=== PATIENT | male | born 1975 | race Caucasian/White ===

== ENCOUNTER 2019-07-03 12:18 | Inpatient (IN) | payer OTHER ==
[~2019-07-03] VITALS: Ht 182.9 cm; Wt 111.6 kg
[2019-07-03 12:54] VITALS: BP_SYST 85
--- NOTE | 2019-07-03 14:05 | NUR ---
Patient to ER bed 04 to gown for evaluation. Side rails up.
[2019-07-03 14:09] LABS: BASOPHILS # (AUTO) 0.1 K/uL (0.0-0.2); BASOPHILS % (AUTO) 0.6 % (0.0-2.0); EOSINOPHILS # (AUTO) 0.1 K/uL (0.0-0.4); EOSINOPHILS % (AUTO) 0.6 % (0.0-4.0); HEMATOCRIT 42.2 % (36-54); HEMOGLOBIN 14.3 g/dL (14.0-18.0); LYMPHOCYTES % (AUTO) 9.5 % (20.5-51.5); MEAN CORPUSCULAR HEMOGLOBIN 30 pg (27-31); MEAN CORPUSCULAR HGB CONC 34 % (32-36); MEAN CORPUSCULAR VOLUME 90 fL (79.0-98.0); MONOCYTES # (AUTO) 0.8 K/uL (0.0-1.0); MONOCYTES % (AUTO) 7.7 % (1.7-9.3); NEUTROPHILS # (AUTO) 8.3 K/uL (1.8-7.7); NEUTROPHILS % (AUTO) 81.6 % (40.0-70.0); PLATELET COUNT (AUTO) 278 K/uL (130-430); RED CELL DISTRIBUTION WIDTH 14.4 % (9.0-15.0); WHITE BLOOD COUNT (AUTO) 10.1 K/uL (4.8-10.8)
[2019-07-03 14:21] LABS: CALCIUM 8.6 mg/dL (8.4-11.0); CREATININE 1.78 mg/dL (0.55-1.30); POTASSIUM 4.1 mmol/L (3.5-5.1)
--- NOTE | 2019-07-03 14:23 | NUR ---
ER Dr. Del Valle at bedside examining patient.
[2019-07-03 14:27] LABS: ALBUMIN 2.8 g/dL (3.4-4.8); TOTAL BILIRUBIN 2.8 mg/dL (0.0-1.0)
--- NOTE | 2019-07-03 14:35 | NUR ---
Patient presented to ER with C/O shoulder RUQ pain. Patient A&Ox4, afebrile, arrived via wheelchair, patient Quadrapalegic with bilat arm movement. Patient has Nausea, denies V/D, pain /. Patient referred by Dr. Henderson office for Cholecystitis
[2019-07-03] MEDS ORDERED: AZITHROMYCIN 500 MG in NS 250 ML IV ONE (15:30)
--- NOTE | 2019-07-03 16:15 | NUR ---
# 24 gauge angiocath placed to right hand. Use of asceptic technique. Opsite placed over site. Blood return noted. Blood for lab drawn from site. Flushed with 10 cc of normal saline. No evidence of infiltration noted. Patient tolerated well.
--- NOTE | 2019-07-03 16:30 | NUR ---
Per Tanisha DEGROOTautomatic punch press operator waiting patient bed assignment, HOLD in ER
[2019-07-03] MEDS ORDERED: POTASSIUM CHLORIDE 20 MEQ in D5NS 1,000 ML IV SCH (17:00)
[2019-07-03] MEDS: KCL 20 mEq in D5NS 1000 mL 1,000 ML IV SCH ×3 (17:33→23:40)
[2019-07-03] MEDS: PIPERACILLIN/TAZO 3.375/DEX-IS 50 ML IV SCH ×2 (17:34→20:19)
[2019-07-03] MEDS ORDERED: AZITHROMYCIN 500 MG/VIAL (ZITHROMAX) IV ONE (17:58)
[2019-07-03] MEDS ORDERED: KETOROLAC TROMETHAMINE 30 MG VIAL IM SCH (18:00)
--- NOTE | 2019-07-03 18:05 | NUR ---
# 16 FR Bang catheter with use of sterile technique. Immediate return of 30cc yellow urine noted. Bedside drainage bag placed below level of bladder. Urine sample collected and sent to lab. Pt tolerated procedure well . Patient arrived with condom catheter in place, changed due to standard of practice prior to admission. Patient unable to toilet self, parapalegic.
[2019-07-03 18:14] LABS: BILIRUBIN,URINE 2+ (NEGATIVE); BLOOD, URINE 2+ (NEGATIVE); CLARITY/URINE CLOUDY (CLEAR); COLOR,URINE YELLOW (YELLOW); GLUCOSE,URINE NEGATIVE (NEGATIVE); KETONES,URINE TRACE (NEGATIVE); LEUKOCYTE ESTERASE ,URINE 3+ (NEGATIVE); NITRITE, URINE POSITIVE (NEGATIVE); PROTEIN URINE 1+ (NEGATIVE); UROBILINOGEN,URINE 0.2 (0.2-1.0)
[2019-07-03] MEDS: metroNIDAZOLE 500 mg/NS 100 ML IV SCH (18:19)
[2019-07-03 18:24] LABS: BACTERIA,URINE MANY /HPF (None Seen); MUCUS,URINE None Seen /LPF (None Seen); URINE AMORPHOUS PHOSPHATES 2+ /HPF (None Seen); WBC,URINE >100 /HPF (0-3)
[2019-07-03] MEDS ORDERED: metroNIDAZOLE 500 mg/NS 100 ML IV ONE (18:32)
--- NOTE | 2019-07-03 19:15 | NUR ---
No Med rec, patient unable to provide medication list. Brother will bring in.
--- NOTE | 2019-07-03 19:19 | NUR ---
Report to Anand DEGROOT
--- NOTE | 2019-07-03 20:30 | NUR ---
Patient will be admitted to care of DR GEE. Admitted to unit. Will go to room . Belongings list completed. Summary report printed. Report will be given at bedside.
--- NOTE | 2019-07-03 20:45 | NUR ---
ADMISSION NOTE Received patient from ER via thao, received report from MIKAYLA evans. Patient admitted with diagnosis of acute cholecystitis. Patient oriented to hospital routine, call light, toileting and safety-patient verbalized understanding.
[2019-07-03 20:46] VITALS: BP_SYST 100
--- NOTE | 2019-07-03 21:37 | NUR ---
CONSULTATION PAGED/CALLED Reason for Consultation: CHOLECYSTITIS Person Who was Notified:DIANE Consulting Physician: Vickie KHAN Life Science Technician Specialty: Ordering Physician: MARLEN
--- NOTE | 2019-07-03 21:41 | NUR ---
HIDA Patient taken to radiology for Hida scan, will monitor when back in room.
--- NOTE | 2019-07-03 21:46 | NUR ---
Spoke to Dr. Vickie KHAN, new consult, updated him on patients status, no new orders at this time, states he will see patient in the am.
--- NOTE | 2019-07-03 23:04 | NUR ---
RN ROUNDS Patient still in radiology for HIDA scan.
[2019-07-04] MEDS: PIPERACILLIN/TAZO 3.375/DEX-IS 50 ML IV SCH ×5 (00:51→23:22)
--- NOTE | 2019-07-04 01:10 | NUR ---
RN ROUNDS Patient back from Hida scan, placed back in bed, nauseated, paged Dr. Beverly for medication orders, awaiting for call back.
[2019-07-04 01:42] VITALS: BP_SYST 131
--- NOTE | 2019-07-04 03:00 | NUR ---
RN ROUNDS/IV Patient awake, IV line to right hand infiltrated, new IV line placed on left ac with 20 gauge catheter, good blood return noted, secured with opsite and tape. Resumed IVF and antibiotics, patient repositioned for comfort, sister at bedside.
[2019-07-04] MEDS: metroNIDAZOLE 500 mg/NS 100 ML IV SCH ×3 (03:53→20:42)
[2019-07-04] MEDS ORDERED: FLU VACC QS2019-20 36MOS UP/PF 60 MCG/0.5 ML SYRINGE I.M. PRN (04:15)
--- NOTE | 2019-07-04 04:21 | NUR ---
RN ROUNDS Patient sleeping, breathing is even and unlabored, due antibiotics administered, new IV line intact and patent, safety measures in place, sister remains at bedside, will monitor.
[2019-07-04] MEDS: KETOROLAC TROMETHAMINE 30 MG VIAL IVP SCH ×4 (05:19→23:21)
[2019-07-04] MEDS: KCL 20 mEq in D5NS 1000 mL 1,000 ML IV SCH ×3 (05:36→22:58)
--- NOTE | 2019-07-04 06:12 | NUR ---
RN ROUNDS Patient continues to sleep, breathing is even and unlabored, due medications administered, feliz catheter secured and to gravity draining lencho urine, safety measures maintained through out the shift, sister remains at bedside, will monitor until report given to am nurse.
[2019-07-04 06:41] LABS: BASOPHILS % (AUTO) 0.2 % (0.0-2.0); EOSINOPHILS # (AUTO) 0.1 K/uL (0.0-0.4); EOSINOPHILS % (AUTO) 0.8 % (0.0-4.0); HEMATOCRIT 39.8 % (36-54); HEMOGLOBIN 13.5 g/dL (14.0-18.0); LYMPHOCYTES # (AUTO) 0.7 K/uL (1.0-5.5); LYMPHOCYTES % (AUTO) 8.4 % (20.5-51.5); MEAN CORPUSCULAR HEMOGLOBIN 30 pg (27-31); MEAN CORPUSCULAR HGB CONC 34 % (32-36); MEAN CORPUSCULAR VOLUME 89 fL (79.0-98.0); MONOCYTES # (AUTO) 0.7 K/uL (0.0-1.0); MONOCYTES % (AUTO) 8.5 % (1.7-9.3); NEUTROPHILS # (AUTO) 6.8 K/uL (1.8-7.7); NEUTROPHILS % (AUTO) 82.1 % (40.0-70.0); PLATELET COUNT (AUTO) 235 K/uL (130-430); RED BLOOD CELL COUNT(AUTO) 4.48 MIL/uL (4.2-6.2); RED CELL DISTRIBUTION WIDTH 14.1 % (9.0-15.0); WHITE BLOOD COUNT (AUTO) 8.3 K/uL (4.8-10.8)
[2019-07-04 07:11] LABS: ALBUMIN 2.1 g/dL (3.4-4.8); CALCIUM 7.9 mg/dL (8.4-11.0); CREATININE 1.73 mg/dL (0.55-1.30); TOTAL BILIRUBIN 3.1 mg/dL (0.0-1.0)
--- NOTE | 2019-07-04 07:30 | NUR ---
Opening note Patient resting in bed at this time, A/Ox4, no SOB. No complaints of pain. IV patent, intact, and infusing fluids as ordered. No adverse side effects noted. On safety and aspiration precautions, HOB kept elevated, 3 side rails up, call light within reach. patient in stable condition. Will continue to monitor.
[2019-07-04 08:00] VITALS: BP_SYST 95
--- NOTE | 2019-07-04 08:24 | NUR ---
Nutrition Update Gilson Scale 17 noted. Pt admitted for acute cholecystitis. Diet: clear liquid, no red BMI: 33.6 kg/m2 RD to follow per nutrition care standards.
--- NOTE | 2019-07-04 09:00 | NUR ---
Rounds patient resting in bed at this time, no complaints of pain. Iv patent, intact, and infusing fluids as ordered. no adverse side effects. Bang catheter in place, draining lencho colored urine to gravity. no other needs at this time.
[2019-07-04 11:08] VITALS: BP_SYST 108
--- NOTE | 2019-07-04 11:30 | NUR ---
rounds Ice water provided. Skin care provided. Linens changed. no other needs at this time.
--- NOTE | 2019-07-04 13:00 | NUR ---
Lunch patient sitting up in bed at this time, eating lunch, tolerating well. no nausea, no vomiting noted. patient in stable condition.
--- NOTE | 2019-07-04 14:58 | NUR ---
Rounds Patient resting in bed at this time. Denies pain. offered patient bed byrnes. patient denied need. no other needs at this time.
[2019-07-04] MEDS ORDERED: ONDANSETRON HCL 4 MG/2 ML VIAL IVP PRN (15:15)
--- NOTE | 2019-07-04 15:30 | NUR ---
Flu shot patient requested for flu shot, given as ordered. no adverse side effects, afebrile.
[2019-07-04 16:09] VITALS: BP_SYST 99
--- NOTE | 2019-07-04 18:00 | NUR ---
Dr. Han patient seen by Dr. Han, patient to have surgery on . Patient awaiting midline placement. Consent given for midline by patient.
--- NOTE | 2019-07-04 18:27 | NUR ---
Closing note Patient resting in bed at this time, A/Ox4, no SOB. No complaints of pain. IV patent, intact, and infusing fluids as ordered. No adverse side effects noted. Bang catheter in place, draining lencho colored urine to gravity. On safety and aspiration precautions, HOB kept elevated, 3 side rails up, call light within reach. patient in stable condition. All needs met.
--- NOTE | 2019-07-04 19:30 | NUR ---
Opening notes Pt AAOx4, no s/s distress noted. Family at bedside. IVF infusing at ordered rate L. AC 20G no s/s infiltration. Bang catheter draining to gravity with lencho urine. Call light within reach. Bed low, locked, siderails up x3. To monitor.
--- NOTE | 2019-07-04 19:55 | NUR ---
PICC MIKAYLA LEDESMA AT BEDSIDE FOR MIDLINE PLACEMENT. TIME OUT DONE AT BEDSIDE. Addendum: 07/04/19 at 2038 by Liz Mejía RN TERRELL PICC LINE DOUBLE LUMEN. GOOD BLOOD RETURN AND FLUSHES WELL WITH 10CC NS.
--- NOTE | 2019-07-04 20:29 | NUR ---
PORTABLE XRAY AT BEDSIDE TO CONFIRM PLACEMENT OF MIDLINE. Addendum: 07/04/19 at 2040 by Liz Mejía RN KACY CISNEROS.
[2019-07-04] MEDS: ENOXAPARIN SODIUM 30 MG/0.3 ML SYRINGE SUBCUT SCH (20:45)
[2019-07-04 20:48] LABS: INR 1.1 (0.80-1.20); PROTHROMBIN TIME 10.7 SECS (9.5-12.5)
[2019-07-04 20:53] VITALS: BP_SYST 107
--- NOTE | 2019-07-04 21:45 | NUR ---
CONSULT: CONSULT CALLED FOR DR. ARLETTE PEARSON I SPOKE WITH SAYRA EXCHANGE REASON FOR CONSULT: RIGHT ADRENAL MASS REQUESTING CONSULT: DR. GEE GREENSKEEPER SUPERVISOR PHONE NUMBER: [phone]
--- NOTE | 2019-07-04 21:47 | NUR ---
CONSULT: CONSULT CALLED FOR DR. ROBERSON I SPOKE WITH SAYRA EXCHANGE REASON FOR CONSULT: RT SIDE PNEUMONIA AND CHOLECYSTITIS REQUESTING CONSULT: DR. GEE PENSION CONSULTANT PHONE NUMBER: [phone]
--- NOTE | 2019-07-04 22:35 | NUR ---
Paged Pt c/o bloating and no BM since wednesday. Pt states he takes suppository at home. Paged and spoke with Dr. Beverly and orders received. Will carry out.
[2019-07-04] MEDS: MAG-AL HYDROX/SIMETH 30 ML UDC PO PRN (22:57)
[2019-07-04] MEDS ORDERED: BISACODYL 10 MG/SUPPOSITORY RC SCH (23:00)
--- NOTE | 2019-07-04 23:22 | NUR ---
Rounds Pt awake, states he feels better after Maalox given. Pt refused suppository at this time, pt states he wants to rest. Call light within reach. To monitor.
[2019-07-05 00:30] VITALS: BP_SYST 95
--- NOTE | 2019-07-05 02:10 | NUR ---
Rounds Pt asleep, respirations even and unlabored. IVF infusing at ordered rate TERRELL PICC line. Call light within reach. Pt's sister at bedside. Safety measures in place. To monitor.
[2019-07-05] MEDS: KCL 20 mEq in D5NS 1000 mL 1,000 ML IV SCH ×3 (02:20→16:23)
[2019-07-05] MEDS: metroNIDAZOLE 500 mg/NS 100 ML IV SCH ×3 (04:11→21:05)
[2019-07-05] MEDS: PIPERACILLIN/TAZO 3.375/DEX-IS 50 ML IV SCH ×2 (05:32→12:05)
[2019-07-05] MEDS: KETOROLAC TROMETHAMINE 30 MG VIAL IVP SCH ×3 (05:36→18:27)
--- NOTE | 2019-07-05 06:00 | NUR ---
Closing notes Pt alert awake, no s/s distress noted. IV antibiotic and pain med given as scheduled. IVF infusing at ordered rate TERRELL PICC line 2 lumens. Offered pt suppository this Am, but pt wants it later this AM. Pt signed consent for surgery, per pt. Dr. Han already spoke with him, placed in chart. Bang catheter draining to gravity with good output. Call light within reach. Bed low, locked, siderails up x 3. Pts sister at bedside. To endorse to AM nurse.
--- NOTE | 2019-07-05 06:46 | NUR ---
Insulin pump Pt alert, awake, blood sugar checked 276. Pt self-administered 4.5 units Humalog via his insulin pump. Addendum: 07/05/19 at 0721 by Liz Mejía RN Disregard above notes. Error in entry.
[2019-07-05 07:04] LABS: BASOPHILS % (AUTO) 0.4 % (0.0-2.0); EOSINOPHILS # (AUTO) 0.2 K/uL (0.0-0.4); EOSINOPHILS % (AUTO) 4.3 % (0.0-4.0); HEMATOCRIT 37.2 % (36-54); HEMOGLOBIN 12.5 g/dL (14.0-18.0); LYMPHOCYTES # (AUTO) 0.9 K/uL (1.0-5.5); LYMPHOCYTES % (AUTO) 15.6 % (20.5-51.5); MEAN CORPUSCULAR HEMOGLOBIN 30 pg (27-31); MEAN CORPUSCULAR HGB CONC 34 % (32-36); MEAN CORPUSCULAR VOLUME 90 fL (79.0-98.0); MONOCYTES # (AUTO) 0.6 K/uL (0.0-1.0); MONOCYTES % (AUTO) 11.4 % (1.7-9.3); NEUTROPHILS # (AUTO) 3.9 K/uL (1.8-7.7); NEUTROPHILS % (AUTO) 68.3 % (40.0-70.0); PLATELET COUNT (AUTO) 216 K/uL (130-430); RED BLOOD CELL COUNT(AUTO) 4.16 MIL/uL (4.2-6.2); RED CELL DISTRIBUTION WIDTH 14.2 % (9.0-15.0); WHITE BLOOD COUNT (AUTO) 5.7 K/uL (4.8-10.8)
--- NOTE | 2019-07-05 07:30 | NUR ---
OPENING NOTES: RECEIVED PATIENT FROM TELEPHONIC NURSE NURSE. PATIENT IS AWAKE AND ALERT IN BED. PATIENT DENIES ANY PAIN AT THE MOMENT. NO SIGNS OF DISTRESS OR SHORTNESS OF BREATH NOTED. PICC LINE INTACT AND INFUSING FLUIDS ORDERED WITH CLEAN, DRY DRESSING. [place] CATHETER INTACT AND DRAINING BY GRAVITY. PATIENT IS TOLERATING OXYGEN AT ROOM AIR. PATIENT IN STABLE CONDITION. SAFETY, FALL AND ASPIRATION PRECAUTIONS ARE IN PLACE. BED LOCKED IN LOWEST POSITION WITH CALL LIGHT IN REACH. WILL CONTINUE TO MONITOR PATIENT FOR ANY CHANGES.
[2019-07-05 07:33] LABS: CALCIUM 7.9 mg/dL (8.4-11.0); CREATININE 1.35 mg/dL (0.55-1.30); POTASSIUM 4.4 mmol/L (3.5-5.1)
[2019-07-05 08:22] VITALS: BP_SYST 125
--- NOTE | 2019-07-05 09:04 | NUR ---
MD ROUNDS: DR. KHAN MAKING ROUNDS. AWARE OF PATIENT'S CONDITION. NO NEW ORDERS GIVEN.
--- NOTE | 2019-07-05 10:20 | NUR ---
RN ROUNDS: PATIENT IS AWAKE AND ALERT x4 LAYING DOWN IN BED. FAMILY AT BEDSIDE. PATIENT DENIES ANY PAIN AT THE MOMENT. NO SIGNS OF DISTRESS OR SHORTNESS OF BREATH NOTED. PATIENT IN STABLE CONDITION. WILL CONTINUE TO MONITOR PATIENT FOR ANY CHANGES.
[2019-07-05 12:00] VITALS: BP_SYST 122
--- NOTE | 2019-07-05 12:20 | NUR ---
RN ROUNDS: PATIENT IS AWAKE AND ALERT x4. NO SIGNS OF DISTRESS OR SHORTNESS OF BREATH NOTED. PATIENT DENIES ANY PAIN AT THE MOMENT. PATIENT IN STABLE CONDITION. WILL CONTINUE TO MONITOR PATIENT FOR ANY CHANGES.
--- NOTE | 2019-07-05 14:00 | NUR ---
RN ROUNDS: PATIENT IS AWAKE AND ALERT x4 LAYING DOWN IN BED. PATIENT IS ABOUT TO GET TAKEN TO RADIOLOGY FOR A CT SCAN. NO SIGNS OF DISTRESS OR SHORTNESS OF BREATH NOTED. PATIENT IN STABLE CONDITION. WILL CONTINUE TO MONITOR PATIENT ONCE HE RETURNS FROM RADIOLOGY.
--- NOTE | 2019-07-05 14:24 | NUR ---
RN ROUNDS: PATIENT WAS BROUGHT BACK TO THE FLOOR FROM RADIOLOGY. PATIENT AWAKE AND ALERT x4 LAYING DOWN IN BED. RECONNECTED IV FLUIDS AND RUNNING ORDERED. PATIENT IN STABLE CONDITION. WILL CONTINUE TO MONITOR PATIENT FOR ANY CHANGES.
[2019-07-05] MEDS: CEFEPIME 1 GM in D5W 50 ML IV SCH (14:35)
--- NOTE | 2019-07-05 16:12 | NUR ---
RN ROUNDS: PATIENT IS AWAKE AND ALERT x4 LAYING DOWN IN BED. NO SIGNS OF DISTRESS OR SHORTNESS OF BREATH NOTED. PATIENT IN STABLE CONDITION. WILL CONTINUE TO MONITOR PATIENT FOR ANY CHANGES.
[2019-07-05 17:01] VITALS: BP_SYST 149
--- NOTE | 2019-07-05 18:45 | NUR ---
CLOSING NOTES: PATIENT IS AWAKE AND ALERT x4 IN BED. PATIENT DENIES ANY PAIN AT THE MOMENT. NO SIGNS OF DISTRESS OR SHORTNESS OF BREATH NOTED. PICC LINE INTACT AND INFUSING FLUIDS ORDERED WITH CLEAN, DRY DRESSING. [place] CATHETER INTACT AND DRAINING BY GRAVITY. PATIENT IS TOLERATING OXYGEN AT ROOM AIR. PATIENT IN STABLE CONDITION. SAFETY, FALL AND ASPIRATION PRECAUTIONS ARE IN PLACE. BED LOCKED IN LOWEST POSITION WITH CALL LIGHT IN REACH. WILL ENDORSE PATIENT CARE TO ONCOMING RADIOGRAPHY TECHNICIAN NURSE.
--- NOTE | 2019-07-05 19:25 | NUR ---
OPENING NOTES RECEIVED PATIENT IN BED AAO X4. FAMILY AT BEDSIDE. IVF INFUSING ORDERED. TERRELL PICC LINE DRY AND INTACT. BED IN LOWEST LOCKED POSITION. CALL LIGHT WITH IN REACH.
[2019-07-05] MEDS: ENOXAPARIN SODIUM 30 MG/0.3 ML SYRINGE SUBCUT SCH (21:00)
--- NOTE | 2019-07-05 21:05 | NUR ---
ATB PATIENT DUE ANTIBIOTIC INFUSED. VITAL SIGNS STABLE.
[2019-07-05 21:10] VITALS: BP_SYST 139
--- NOTE | 2019-07-05 21:25 | NUR ---
TERE SPOKE WITH DR. GEE VERIFIED IF OK TO GIVE LOVENOX DOSE TONIGHT. PER MD DO NOT GIVE DOSE TONIGHT PATIENT FOR SURGERY TOMORROW.
[2019-07-06] VITALS: BP_SYST 122
[2019-07-06] MEDS: KETOROLAC TROMETHAMINE 30 MG VIAL IVP SCH ×5 (00:04→23:33)
[2019-07-06] MEDS: KCL 20 mEq in D5NS 1000 mL 1,000 ML IV SCH ×3 (00:05→23:33)
--- NOTE | 2019-07-06 00:05 | NUR ---
MED PASS PATIENT DUE MEDICATION GIVEN. VITAL SIGNS STABLE.
[2019-07-06] MEDS: metroNIDAZOLE 500 mg/NS 100 ML IV SCH ×3 (04:20→21:02)
--- NOTE | 2019-07-06 04:20 | NUR ---
ATB PATIENT DUE ANTIBIOTIC INFUSED. PICC LINE INTACT. NO C/O PAIN.
--- NOTE | 2019-07-06 06:54 | NUR ---
CLOSING NOTES PATIENT RESTING IN BED. FAMILY MEMBER AT BEDSIDE. IVF INFUSING ORDERED. NPO STATUS PATIENT AWARE. PATIENT NEEDS ATTENDED. CALL LIGHT WITH IN REACH.
--- NOTE | 2019-07-06 07:25 | NUR ---
AM ROUNDS: PATIENT SLEEPING DURING ROUNDS. WITH FAMILY AT RECLINER CHAIR SLEEPING WELL.RIGHT UPPER ARM PICC LINE X 2 PORTS,IVF ON GOING. CALL LIGHT WITH IN REACH. BED LOCKED AT LOWEST POSITION. NOT IN ANY DISTRESS.NOTHING BY MOUTH SINCE MIDNIGHT.FOR SURGERY TODAY.
[2019-07-06 07:55] VITALS: BP_SYST 96
--- NOTE | 2019-07-06 10:10 | NUR ---
RN ROUNDS: PATIENT ON SIDE LYING,RESTING. NO COMPLAINED MADE.
[2019-07-06] MEDS: CEFEPIME 1 GM in D5W 50 ML IV SCH (11:18)
[2019-07-06] MEDS: cefTRIAXone 1 GM in D5W 50 ML IV SCH (11:59)
--- NOTE | 2019-07-06 12:00 | NUR ---
IV ROCEPHIN: DC MAXIPIME AND STARTED ON ROCEPHIN ORDERED.NO COMPLICATIONS NOTED.
[2019-07-06 12:25] VITALS: BP_SYST 138
--- NOTE | 2019-07-06 13:00 | NUR ---
TO OR: OR STAFF CAME AND REPORT GIVEN,ANESTHESIOLOGIST SPOKE TO PATIENT AT THE BEDSIDE,UNDERSTANDS THE INSTRUCTIONS.PATIENT SIGNED THE INFORM CONSENT.PRE OP CHECK LIST DONE.TO OR PER PADMINI LALA IN [place].STABLE.
[2019-07-06] MEDS ORDERED: MORPHINE 4 MG/ML INJ. SYRINGE IVP PRN (13:30)
[2019-07-06] MEDS ORDERED: ONDANSETRON HCL 4 MG/2 ML VIAL IVP PRN ×2 (13:30→15:00)
[2019-07-06] MEDS ORDERED: IOHEXOL 50 ML IV ONE ×2 (13:47→14:42)
[2019-07-06] MEDS ORDERED: LR 1,000 ML IV SCH (14:49)
[2019-07-06] MEDS ORDERED: HYDROmorphone 2 MG/ML VIAL IVP PRN (15:00)
[2019-07-06] MEDS ORDERED: HYDROmorphone 1 MG INJ. 1 MG/ML AMPUL IVP PRN ×2 (15:00)
--- NOTE | 2019-07-06 15:32 | NUR ---
RN ROUNDS: PATIENT STILL IN OR.
[2019-07-06] MEDS ORDERED: SEVOFLURANE 15 MIN GAS INH ONE (16:10)
[2019-07-06] MEDS ORDERED: GLYCOPYRROLATE 0.2 MG/ML VIAL ONE (16:10)
[2019-07-06] MEDS ORDERED: BUPIVACAINE /EPINEPHRINE/PF 0.25% 30 ML VIAL INJ ONE (16:10)
[2019-07-06] MEDS ORDERED: NS 1000 ML IV.SOLN IV ONE (16:10)
[2019-07-06] MEDS ORDERED: LR 1,000 ML IV.SOLN IV ONE (16:10)
[2019-07-06] MEDS ORDERED: PROPOFOL 200MG/ 20ML VIAL (DIPRIVAN) IV ONE (16:10)
[2019-07-06] MEDS ORDERED: NS IRRIG SOLN 1000 ML IR ONE (16:10)
[2019-07-06] MEDS ORDERED: ONDANSETRON HCL 4 MG/2 ML VIAL ONE (16:10)
[2019-07-06] MEDS ORDERED: NEOSTIGMINE METHYLSULFATE 1 MG/ML, 10 ML VIAL ONE (16:10)
[2019-07-06] MEDS ORDERED: MORPHINE SULFATE 10MG/10ML PF AMP ONE (16:10)
[2019-07-06] MEDS ORDERED: MIDAZOLAM HCL 5 MG/ML VIAL (VERSED) IV ONE (16:10)
[2019-07-06] MEDS ORDERED: ROCURONIUM BROMIDE 10 MG/ML (ZEMURON) ONE (16:10)
[2019-07-06] MEDS ORDERED: fentaNYL CITRATE 250 MCG/5 ML AMP ONE (16:10)
[2019-07-06] MEDS ORDERED: PHENYLEPHRINE HCL 10 MG/ML VIAL (NEOSYNEPHRINE) ONE (16:10)
[2019-07-06 17:20] VITALS: BP_SYST 102
--- NOTE | 2019-07-06 17:20 | NUR ---
POST OP NOTES: PATIENT BACK FROM OR. S/P OPEN CHOLECYSTECTOMY.RIGHT QUADRANT DRESSING CLEAN AND DRY.RIGHT [place] DRAIN,SEROUS SANGUINOUS DISCHARGES,SCANTY. POST OP VITAL SIGNS TAKEN,AFEBRILE. CONTINUE TO MONITOR.
--- NOTE | 2019-07-06 18:37 | NUR ---
CLOSING NOTES: PATIENT STABLE. CALL LIGHT WITH IN REACH. BED LOCKED AT LOWEST POSITION. NO ACTIVE BLEEDING ON POST SURGICAL SITE.[place] DRAIN INTACT. [place] IN SITU. CONDITION GUARDED.
--- NOTE | 2019-07-06 19:35 | NUR ---
ROUNDS PATIENT IN BED, AWAKE, WATCHING TV, NOT IN DISTRESS, VITALS STABLE. DENIES ANY PAIN AND DISCOMFORT AT THIS TIME. ASSESSMENT DONE AN DOCUMENTED. SEE FLOWSHEET. NEEDS ATTENDED TO. SAFETY AND FALL PRECAUTION MEASURES IN PLACED. BED ALARM ON. CALL LIGHT PLACED WITHIN REACH.
[2019-07-06] MEDS: ENOXAPARIN SODIUM 30 MG/0.3 ML SYRINGE SUBCUT SCH (21:04)
--- NOTE | 2019-07-06 21:13 | NUR ---
MEDICATIONS DUE MEDICATIONS GIVEN SCHEDULED, TOLERATED WELL. WILL CONTINUE TO MONITOR.
--- NOTE | 2019-07-07 00:12 | NUR ---
PATIENT RESTING: Patient resting quietly. No acute distress noted. Vital signs within normal range.
--- NOTE | 2019-07-07 00:13 | NUR ---
PATIENT RESTING: Patient resting quietly. No acute distress noted. Vital signs within normal range.
[2019-07-07 00:50] VITALS: BP_SYST 111
--- NOTE | 2019-07-07 02:15 | NUR ---
ROUNDS PATIENT ASLEEP, VITALS STABLE, NO PAIN AND DISCOMFORT NOTED. WILL CONTINUE TO MONITOR.
[2019-07-07] MEDS: metroNIDAZOLE 500 mg/NS 100 ML IV SCH ×3 (04:57→21:06)
[2019-07-07] MEDS: MAG-AL HYDROX/SIMETH 30 ML UDC PO PRN (05:06)
[2019-07-07] MEDS: KETOROLAC TROMETHAMINE 30 MG VIAL IVP SCH ×3 (06:22→17:49)
[2019-07-07 06:40] LABS: BASOPHILS % (AUTO) 0.3 % (0.0-2.0); EOSINOPHILS # (AUTO) 0.1 K/uL (0.0-0.4); EOSINOPHILS % (AUTO) 0.5 % (0.0-4.0); HEMATOCRIT 32.5 % (36-54); LYMPHOCYTES # (AUTO) 0.6 K/uL (1.0-5.5); LYMPHOCYTES % (AUTO) 5.8 % (20.5-51.5); MEAN CORPUSCULAR HEMOGLOBIN 31 pg (27-31); MEAN CORPUSCULAR HGB CONC 34 % (32-36); MEAN CORPUSCULAR VOLUME 90 fL (79.0-98.0); MONOCYTES # (AUTO) 0.7 K/uL (0.0-1.0); MONOCYTES % (AUTO) 6.4 % (1.7-9.3); NEUTROPHILS # (AUTO) 9.2 K/uL (1.8-7.7); PLATELET COUNT (AUTO) 238 K/uL (130-430); RED BLOOD CELL COUNT(AUTO) 3.59 MIL/uL (4.2-6.2); RED CELL DISTRIBUTION WIDTH 14.1 % (9.0-15.0); WHITE BLOOD COUNT (AUTO) 10.5 K/uL (4.8-10.8)
--- NOTE | 2019-07-07 07:25 | NUR ---
AM ROUNDS: PATIENT AWAKE DURING ROUNDS. MID ABDOMEN DRESSING WITH OLD BLOOD STAIN,NO ACTIVE BLEEDING.RIGHT [place] DRAIN ,MODERATE-LARGE AMOUNT OF REDDISH DISCHARGES. [place] IN SITU. RIGHT UPPER ARM PICC LINE IN PLACE. CALL LIGHT WITH IN REACH. BED LOCKED AT LOWEST POSITION. WITH FAMILY AT THE RECLINER CHAIR SLEEPING. NO ACUTE DISTRESS.
[2019-07-07 08:01] VITALS: BP_SYST 107
[2019-07-07 08:24] LABS: CALCIUM 7.4 mg/dL (8.4-11.0); CREATININE 1.15 mg/dL (0.55-1.30); POTASSIUM 4.3 mmol/L (3.5-5.1); TOTAL BILIRUBIN 1.2 mg/dL (0.0-1.0)
[2019-07-07] MEDS: KCL 20 mEq in D5NS 1000 mL 1,000 ML IV SCH ×3 (08:41→21:06)
--- NOTE | 2019-07-07 09:30 | NUR ---
RN ROUNDS: PATIENT RESTING. NO ACTIVE BLEEDING ON ABDOMEN DRESSING,OLD BLOOD STAINED NOTED. [place] DRAINING TO SEROUS SANGUINOUS IN MODERATION.
[2019-07-07] MEDS ORDERED: IOHEXOL 100 ML IV ONE (10:59)
[2019-07-07] MEDS: cefTRIAXone 1 GM in D5W 50 ML IV SCH (11:30)
[2019-07-07 12:00] VITALS: BP_SYST 117
--- NOTE | 2019-07-07 12:36 | NUR ---
RN ROUNDS: PATIENT ATE LUNCH SLOWLY.INSTRUCTED NOTHING BY MOUTH AFTER LUNCH,PATIENT FOR CT SCAN OF ABDOMEN WITH CONTRAST AND VERBALIZED UNDERSTANDING OF INSTRUCTIONS.
--- NOTE | 2019-07-07 14:00 | NUR ---
RN ROUNDS: WITH FAMILY AT THE BEDSIDE. NOT IN ANY DISTRESS.
--- NOTE | 2019-07-07 16:30 | NUR ---
RN ROUNDS: NO ACUTE DISTRESS. PAIN BEARABLE PER PAIN,DOES NOT WANT ANY PAIN MEDS THIS TIME.
[2019-07-07 16:55] VITALS: BP_SYST 124
--- NOTE | 2019-07-07 18:31 | NUR ---
CLOSING NOTES: PATIENT ATE DINNER. MID ABDOMEN DRESSING ,NO ACTIVE BLEEDING,OLD BLOOD STAIN.RIGHT [place] DRAINING SEROUS SANGUINOUS SECRETIONS. [place] IN SITU. PRACTICE GUIDELINES MET THROUGH SHIFT.
--- NOTE | 2019-07-07 19:20 | NUR ---
AM ROUNDS: PATIENT AAOX4, RESTING IN BED VISITING WITH FAMILY MEMBERS. NO S/S OF ACUTE DISTRESS. BREATHING IS EVEN AND UNLABORED TO ROOM AIR. PAIN IS REPORTED TO BE AT A TOLERABLE LEVEL. VSS. DRESSING TO ABDOMINAL INCISION IS INTACT, WITH OLD BLOOD STAIN, NO ACTIVE BLEEDING NOTED .RIGHT [place] DRAIN ,MODERATE REDDISH DISCHARGE NOTED. [place] IS INTACT AND DRAINING TO GRAVITY. RIGHT UPPER ARM PICC LINE IN PLACE WITH IVF INFUSING AT ORDERED RATE. SAFETY PRECAUTIONS ARE IN PLACE: SIDE RAILS UP X3. CALL LIGHT WITH PATIENT. BED LOCKED AT LOWEST POSITION. WILL CONTINUE TO MONITOR. Addendum: 07/08/19 at 0319 by Emily Cisse RN OPENING NOTE/PM ROUNDS:
[2019-07-07] MEDS: ENOXAPARIN SODIUM 30 MG/0.3 ML SYRINGE SUBCUT SCH (21:10)
--- NOTE | 2019-07-07 21:10 | NUR ---
MED PASS SCHEDULED LOVENOX AND FLAGYL ADMINISTERED. MEDICATION ACTIONS AND POTENTIAL SIDE EFFECTS EXPLAINED. PT VERBALIZED UNDERSTANDING. IVF BAG ALSO CHANGED. PT RESTING AND VISITING WITH FAMILY. NO ACUTE DISTRESS. PT INSTRUCTED TO CALL FOR ASSISTANCE. SAFETY MAINTAINED. WILL MONITOR.
--- NOTE | 2019-07-07 22:15 | NUR ---
CLEANED/REPOSITIONED PT CLEANED, REPOSITIONED, AND GIVEN FRESH SHEETS AND GOWN WITH ASSISTANCE FROM SEVERIANO DA SILVA AND PRIMARY RN. PT TOLERATED WELL. NO S/S OF DISTRESS. SAFETY MAINTAINED. WILL MONITOR.
[2019-07-08] MEDS: KETOROLAC TROMETHAMINE 30 MG VIAL IVP SCH ×4 (00:11→17:49)
--- NOTE | 2019-07-08 00:11 | NUR ---
SCHEDULED TORADOL PT GIVEN SCHEDULED TORADOL 30 MG IVP ORDERED. MEDICATION AND POTENTIAL SIDE EFFECTS DISCUSSED, PT VERBALIZED UNDERSTANDING. NO S/S OF DISTRESS. PATIENT ENCOURAGED TO CALL FOR ASSISTANCE, CALL LIGHT IS WITH PT. PT HAS A VISITOR AT BEDSIDE. SAFETY MAINTAINED. WILL MONITOR.
--- NOTE | 2019-07-08 02:08 | NUR ---
RN ROUNDS: PT IS IN BED, AWAKE AND ALERT, TALKING WITH VISITORS AT BEDSIDE. NO S/S OF DISTRESS. PT REPORTS PAIN TO BE AT A TOLERABLE LEVEL. IVF INFUSING AT ORDERED RATE. [place] IS INTACT AND DRAINING TO GRAVITY. PT DENIES FURTHER NEEDS AT THIS TIME. SAFETY PRECAUTIONS ARE IN PLACE. WILL MONITOR.
[2019-07-08] MEDS: metroNIDAZOLE 500 mg/NS 100 ML IV SCH ×3 (04:39→22:16)
--- NOTE | 2019-07-08 04:39 | NUR ---
FLAGYL/REPOSITIONED FLAGYL ADMINISTERED TO PT ORDERED. NO S/S OF ADVERSE REACTION NOTED. PT REPOSITIONED WITH ASSISTANCE FROM SEVERIANO DA SILVA. PT TOLERATED WELL. NO S/S OF DISTRESS. SAFETY MAINTAINED. WILL MONITOR.
[2019-07-08] MEDS: KCL 20 mEq in D5NS 1000 mL 1,000 ML IV SCH ×4 (04:40→22:17)
--- NOTE | 2019-07-08 05:30 | NUR ---
SCHEDULED TORADOL PT GIVEN SCHEDULED TORADOL IVP ORDERED. PT EASILY AROUSED TO SPEECH, PT NOW RESTING IN BED, BREATHING IS EVEN AND UNLABORED TO ROOM AIR. SKIN IS WARM AND DRY TO TOUCH. NO S/S OF DISTRESS. IVF INFUSING ORDERED. [place] DRAINING TO GRAVITY. SAFETY PRECAUTIONS OBSERVED. WILL CONT TO MONITOR.
--- NOTE | 2019-07-08 06:58 | NUR ---
CLOSING NOTE PATIENT IS RESTING IN BED, NO S/S OF ACUTE DISTRESS, BREATHING IS EVEN AND UNLABORED TO ROOM AIR. PAIN IS REPORTED TO BE AT A TOLERABLE LEVEL. VSS. DRESSING TO ABDOMINAL INCISION IS INTACT, WITH OLD BLOOD STAIN, NO ACTIVE BLEEDING NOTED THROUGHOUT SHIFT .RIGHT [place] DRAIN , 10 CC REDDISH DISCHARGE NOTED THROUGHOUT SHIFT. [place] IS INTACT AND DRAINING TO GRAVITY. RIGHT UPPER ARM PICC LINE IN PLACE WITH IVF INFUSING AT ORDERED RATE. SAFETY PRECAUTIONS ARE IN PLACE: SIDE RAILS UP X3. CALL LIGHT WITH PATIENT. BED LOCKED AT LOWEST POSITION. ALL NEEDS MET DURING SHIFT. WILL CONTINUE TO MONITOR UNTIL PT CARE IS ENDORSED TO DAY SHIFT RN.
--- NOTE | 2019-07-08 07:16 | NUR ---
sbar report received at the bedside. patient aaox4. breathing even and unlabored. lungs bilaterally diminished at the bases. no oxygen noted. vital signs stable. afebrile. has picc line on the rt upper arm 2 lumen with D5NS+20kcl at 150cc/hr infusing on well. has abdominal dressing on the right side, with zabrina drain on the right side draining serosanguinous noted. has feliz catheter in placed and draining lencho clear urine. has bilateral scds in placed. encouraged to used incentive spirometry at the bedside. bed low position, alarmed and locked. call lights within reach. continue to monitor patients status.
[2019-07-08 08:51] VITALS: BP_SYST 137
--- NOTE | 2019-07-08 09:00 | NUR ---
TURN TO SIDES. AND MADE COMFORTABLE.
--- NOTE | 2019-07-08 10:00 | NUR ---
MED PASS GIVEN TO THE PATIENT. ABDOMEN STILL HAS A DRESSING DRY/INTACT. BUT OLD BLOOD NOTED ON IT. AND HAS [place] DRAIN DRAINING WELL.
--- NOTE | 2019-07-08 10:30 | NUR ---
encouraged patient to used the incentive spirometry and its importance.
[2019-07-08 12:28] VITALS: BP_SYST 161
--- NOTE | 2019-07-08 12:30 | NUR ---
J P DRAIN RT ABDOMEN DRAINS 15CC SEROSANGUINOUS NOTED. [place] [id number] [place] EFREN CLEAR URINE.
[2019-07-08] MEDS: cefTRIAXone 1 GM in D5W 50 ML IV SCH (12:35)
--- NOTE | 2019-07-08 12:43 | NUR ---
TORADOL 30 MG GIVEN VIA PICC LINE RT UPPER ARM.
--- NOTE | 2019-07-08 15:45 | NUR ---
patient awake and watching tv. family at the bedside.
--- NOTE | 2019-07-08 16:26 | NUR ---
watching tv. no complained made so far.
[2019-07-08 17:10] VITALS: BP_SYST 151
--- NOTE | 2019-07-08 18:00 | NUR ---
toradol 30 mg iv given. made comfortable
--- NOTE | 2019-07-08 19:20 | NUR ---
endorsed to incoming nurse Papa DEGROOT
[2019-07-08 20:12] VITALS: BP_SYST 148
--- NOTE | 2019-07-08 21:45 | NUR ---
ENCOURAGE ASSIST FOR POSITION CHANGE OFF LOADING WITH PILLOWS KEPT CLEAN ALSO DRY NEEDED & PRN PATIENT ON AIR MATRES COMFORT MEASURES IMPLEMENTED .
[2019-07-08] MEDS: ENOXAPARIN SODIUM 30 MG/0.3 ML SYRINGE SUBCUT SCH (22:18)
--- NOTE | 2019-07-08 23:40 | NUR ---
RHIANNA WOOD JP DRAIN INTACT LOWER RT ABDOMEN SERO - SANG OUT PUT / MONITOR .
--- NOTE | 2019-07-09 00:29 | NUR ---
HOURLY ROUNDING PATIENT AWAKE FAMILY MEMBERS @ THE BEDSIDE CALL DONNELLY WITH PATIENT .
[2019-07-09 00:40] VITALS: BP_SYST 142
[2019-07-09] MEDS: KETOROLAC TROMETHAMINE 30 MG VIAL IVP SCH (01:26)
--- NOTE | 2019-07-09 02:25 | NUR ---
TORADOL 30 MG IVP GIVEN FOR PAIN & HELPFUL , Resting this hour .
[2019-07-09] MEDS: metroNIDAZOLE 500 mg/NS 100 ML IV SCH ×3 (03:11→20:09)
--- NOTE | 2019-07-09 06:04 | NUR ---
RHIANNA WOOD [place] DRAIN 10 ML OUT , SERO - SANG drain intact no active bleeding noted patient alert & oriented .
[2019-07-09 06:06] LABS: BASOPHILS % (AUTO) 0.5 % (0.0-2.0); EOSINOPHILS # (AUTO) 0.4 K/uL (0.0-0.4); EOSINOPHILS % (AUTO) 5.8 % (0.0-4.0); HEMATOCRIT 30.9 % (36-54); HEMOGLOBIN 10.4 g/dL (14.0-18.0); LYMPHOCYTES # (AUTO) 0.9 K/uL (1.0-5.5); LYMPHOCYTES % (AUTO) 15.4 % (20.5-51.5); MEAN CORPUSCULAR HEMOGLOBIN 30 pg (27-31); MEAN CORPUSCULAR HGB CONC 34 % (32-36); MEAN CORPUSCULAR VOLUME 90 fL (79.0-98.0); MONOCYTES # (AUTO) 0.5 K/uL (0.0-1.0); MONOCYTES % (AUTO) 7.6 % (1.7-9.3); NEUTROPHILS # (AUTO) 4.3 K/uL (1.8-7.7); NEUTROPHILS % (AUTO) 70.7 % (40.0-70.0); PLATELET COUNT (AUTO) 317 K/uL (130-430); RED BLOOD CELL COUNT(AUTO) 3.45 MIL/uL (4.2-6.2); RED CELL DISTRIBUTION WIDTH 14.3 % (9.0-15.0); WHITE BLOOD COUNT (AUTO) 6.1 K/uL (4.8-10.8)
[2019-07-09 06:24] LABS: ALBUMIN 1.8 g/dL (3.4-4.8); CALCIUM 7.6 mg/dL (8.4-11.0); CREATININE 0.94 mg/dL (0.55-1.30); TOTAL BILIRUBIN 0.5 mg/dL (0.0-1.0)
--- NOTE | 2019-07-09 07:10 | NUR ---
report received at the bedside. patient aaox 4. breathing even and unlabored. lungs bilaterally clear. abdomen soft and non distended. verbalized passing gas. has the initial dressing noted. slight bleeding noted. reinforced dressing on it. encourage to do incentive spirometry. has picc line on the rt upper arm 2 lumen. with iv fluids of D5NS + 20 meq of kcl at 100cc/hr infusing on well. bed low position. alarmed and locked. call lights within reach. hourly rounding. continue monitor patients status.
--- NOTE | 2019-07-09 08:00 | NUR ---
refused to eat breakfast. said family will bring foods.
[2019-07-09 08:30] VITALS: BP_SYST 120
--- NOTE | 2019-07-09 09:00 | NUR ---
no due medication given. assists on adls noted.
[2019-07-09 11:05] VITALS: BP_SYST 161
--- NOTE | 2019-07-09 12:00 | NUR ---
had lunch tray at the bedside. eating slowly and slowly.
--- NOTE | 2019-07-09 12:30 | NUR ---
zozyn iv antibiotic given.
--- NOTE | 2019-07-09 12:40 | NUR ---
has ginna chance emptied 8cc serosanguinous. no discomfort noted nor pain noted.
--- NOTE | 2019-07-09 12:45 | NUR ---
flagyl iv antibiotic. assists on adls.
[2019-07-09] MEDS: cefTRIAXone 1 GM in D5W 50 ML IV SCH (12:58)
[2019-07-09] MEDS: KCL 20 mEq in D5NS 1000 mL 1,000 ML IV SCH ×2 (12:58→23:20)
--- NOTE | 2019-07-09 13:00 | NUR ---
dr sue called for bp of 161/115, awaiting to call back.
[2019-07-09 14:39] VITALS: BP_SYST 161
--- NOTE | 2019-07-09 15:17 | NUR ---
patient resting. family at the bedside.
--- NOTE | 2019-07-09 15:29 | NUR ---
dr sue called for orders.
--- NOTE | 2019-07-09 15:33 | NUR ---
dr sue called back and said will come to see the patient. bp 199/115.
[2019-07-09] MEDS ORDERED: SODIUM PHOSPHATE,MONO-DIBASIC 133 ML ENEMA RC ONE (15:45)
[2019-07-09] MEDS ORDERED: cloNIDine HCL 0.1 MG TABLET PO PRN (15:45)
[2019-07-09] MEDS ORDERED: BISACODYL 10 MG/SUPPOSITORY RC PRN (15:45)
--- NOTE | 2019-07-09 16:00 | NUR ---
dr sue came and evaluate the patient. made orders.
--- NOTE | 2019-07-09 16:30 | NUR ---
fleet enema done and clonidine 0.1 mg tablet given for bp 199/125. made comfortable.
--- NOTE | 2019-07-09 17:20 | NUR ---
clean up by rommel spencer. continue monitor patients status.
--- NOTE | 2019-07-09 17:22 | NUR ---
called dr benitez barajas regarding dressing slight bleeding noted. awaiting to call back and spoke to
[2019-07-09 17:34] VITALS: BP_SYST 150
--- NOTE | 2019-07-09 18:00 | NUR ---
Dietitian Recommendations * Recommend low-fat, high fiber diet SRIDEVI, RD Please refer to Nutrition Assessment for details. Addendum: 07/09/19 at [address] Amended: Links added.
--- NOTE | 2019-07-09 18:51 | NUR ---
abdominal dressing changed and cleanse with normal saline. has 20 jose roberto noted. slight bleeding noted, mostly on the right side of the abdomen with the j p drain on it. covered with 4 x 4 and abd dressing. taped with paper tape. another dressing on lower quadrant of the abdomen with two jose roberto on it. no bleeding noted. cleanse normal saline and apply 4 x4 gauze on it. covered paper tape.
--- NOTE | 2019-07-09 18:54 | NUR ---
endorsed to incoming nurse Emily RN
--- NOTE | 2019-07-09 19:12 | NUR ---
OPENING NOTE PATIENT AAOX4, RESTING IN BED, VISITING WITH FAMILY MEMBERS. NO S/S OF ACUTE DISTRESS. BREATHING IS EVEN AND UNLABORED TO ROOM AIR. PAIN IS REPORTED TO BE AT A TOLERABLE LEVEL. VSS. DRESSING TO ABDOMINAL INCISION IS CLEAN, DRY AND INTACT, WITH NO ACTIVE BLEEDING NOTED. RIGHT D[place] DRAIN IS INTACT ,MODERATE REDDISH DISCHARGE NOTED. [place] IS INTACT AND DRAINING WELL TO GRAVITY. RIGHT UPPER ARM PICC LINE IN PLACE WITH IVF INFUSING AT ORDERED RATE. SAFETY PRECAUTIONS ARE IN PLACE: SIDE RAILS UP X3. CALL LIGHT WITH PATIENT. BED LOCKED AT LOWEST POSITION. WILL CONTINUE TO MONITOR.
[2019-07-09 20:00] VITALS: BP_SYST 152
[2019-07-09] MEDS: ENOXAPARIN SODIUM 30 MG/0.3 ML SYRINGE SUBCUT SCH (20:10)
--- NOTE | 2019-07-09 20:10 | NUR ---
SCHEDULED MEDICATIONS SCHEDULED LOVENOX AND FLAGYL ADMINISTERED. MEDICATION ACTIONS AND POTENTIAL SIDE EFFECTS EXPLAINED. PT VERBALIZED UNDERSTANDING. PT RESTING AND TALKING WITH FAMILY. NO ACUTE DISTRESS NOTED. PT INSTRUCTED TO CALL FOR ASSISTANCE, CALL LIGHT IS WITH PT. SAFETY MAINTAINED. WILL MONITOR.
--- NOTE | 2019-07-09 21:43 | NUR ---
RN NOTE: PT NOTED TO BE EATING OUTSIDE FOOD BROUGHT IN BY HIS VISITOR. PT REMINDED OF LOW FAT DIET, PT VERBALIZED UNDERSTANDING. PT CONTINUED TO EAT OUTSIDE FOOD AT THIS TIME. SAFETY PRECAUTIONS ARE IN PLACE. WILL CONT TO MONITOR.
--- NOTE | 2019-07-09 23:20 | NUR ---
IVF BAG CHANGE NEW BAG OF ORDERED IVF HUNG, REGULATED TO ORDERED RATE. NO S/S OF DISTRESS. PT RESTING IN BED. SAFETY PRECAUTIONS MAINTAINED. WILL MONITOR.
[2019-07-10] VITALS: BP_SYST 99
--- NOTE | 2019-07-10 01:26 | NUR ---
RN ROUNDS: PT IS IN BED RESTING WITH EYES CLOSED. NO S/S OF DISTRESS. NO SIGN OF PAIN OR DISCOMFORT, NO GUARDING OR FACIAL GRIMACE. IVF INFUSING AT ORDERED RATE. [place] IS INTACT AND DRAINING TO GRAVITY. SAFETY PRECAUTIONS ARE IN PLACE. WILL MONITOR.
[2019-07-10] MEDS: metroNIDAZOLE 500 mg/NS 100 ML IV SCH (03:58)
--- NOTE | 2019-07-10 03:58 | NUR ---
SCHEDULED FLAGYL SCHEDULED FLAGYL ADMINISTERED. NO S/S OF ADVERSE REACTION. PT RESTING COMFORTABLY. SAFETY MAINTAINED. WILL MONITOR.
--- NOTE | 2019-07-10 06:37 | NUR ---
CLOSING NOTE PATIENT IS RESTING IN BED, NO S/S OF ACUTE DISTRESS, BREATHING IS EVEN AND UNLABORED TO ROOM AIR. PAIN IS REPORTED TO BE AT A TOLERABLE LEVEL. VSS. DRESSING TO ABDOMINAL INCISION IS INTACT, NO ACTIVE BLEEDING NOTED THROUGHOUT SHIFT .RIGHT D[place] DRAIN , 7 CC REDDISH DISCHARGE NOTED THROUGHOUT SHIFT. [place] IS INTACT AND DRAINING TO GRAVITY. RIGHT UPPER ARM PICC LINE IN PLACE WITH IVF INFUSING AT ORDERED RATE. SAFETY PRECAUTIONS ARE IN PLACE: SIDE RAILS UP X3. CALL LIGHT WITH PATIENT. BED LOCKED AT LOWEST POSITION. ALL NEEDS MET DURING SHIFT. WILL CONTINUE TO MONITOR UNTIL PT CARE IS ENDORSED TO DAY SHIFT RN.
--- NOTE | 2019-07-10 08:00 | NUR ---
ASSUMPTION OF CARE: RECEIVED PT A/A/OX4, DX: ACUTE PAIN, R/T S/P CHOLECYSTECTOMY. ABD DRSG REMAINS CLEAN, DRY AND INTACT, AFEBRILE, VSS, NO C/O PAIN. BREATH SOUNDS ARE CLEAR, BREATHING UNLABORED, SATURATING 95% ORA, UTILIZES SPIROMETER WHILE AWAKE, IV PICC LINE SITE INTACT, PATENT, NO REDNESS OR SWELLING, DRSG CHANGE DUE ON 07/11/19, D[place] DRAIN WITH SMALL AMT OF SEROSANGUINEOUS DRAINAGE NOTED, PT EDUCATED ON THE CARE OF D[place] DRAIN, VERBALIZES UNDERSTANDING, ORIENTED TO UNIT, CALL LIGHT PLACED WITHIN REACH, WILL CONT' WITH POC.
[2019-07-10 08:09] LABS: BASOPHILS # (AUTO) 0.1 K/uL (0.0-0.2); BASOPHILS % (AUTO) 1.2 % (0.0-2.0); EOSINOPHILS # (AUTO) 0.3 K/uL (0.0-0.4); HEMATOCRIT 30.9 % (36-54); HEMOGLOBIN 10.5 g/dL (14.0-18.0); LYMPHOCYTES # (AUTO) 1.1 K/uL (1.0-5.5); LYMPHOCYTES % (AUTO) 17.3 % (20.5-51.5); MEAN CORPUSCULAR HEMOGLOBIN 30 pg (27-31); MEAN CORPUSCULAR HGB CONC 34 % (32-36); MEAN CORPUSCULAR VOLUME 89 fL (79.0-98.0); MONOCYTES # (AUTO) 0.6 K/uL (0.0-1.0); MONOCYTES % (AUTO) 8.7 % (1.7-9.3); NEUTROPHILS # (AUTO) 4.4 K/uL (1.8-7.7); NEUTROPHILS % (AUTO) 67.8 % (40.0-70.0); PLATELET COUNT (AUTO) 367 K/uL (130-430); RED BLOOD CELL COUNT(AUTO) 3.47 MIL/uL (4.2-6.2); RED CELL DISTRIBUTION WIDTH 14.1 % (9.0-15.0); WHITE BLOOD COUNT (AUTO) 6.4 K/uL (4.8-10.8)
[2019-07-10 08:30] VITALS: BP_SYST 125
[2019-07-10 08:34] LABS: CALCIUM 7.8 mg/dL (8.4-11.0); CREATININE 0.93 mg/dL (0.55-1.30); POTASSIUM 4.2 mmol/L (3.5-5.1)
[2019-07-10 11:27] VITALS: BP_SYST 113
--- NOTE | 2019-07-10 12:00 | NUR ---
NURSES NOTES: PT REMAINS STABLE, NO S/S OF DISTRESS, NO C/O PAIN OR DISCOMFORT, [place] CATHETER DRAINING CLEAR, YELLOW URINE TO GRAVITY, ABLE TO REPOSITION SELF, FAMILY MEMBERS AT BEDSIDE, CALL LIGHT PLACED WITHIN REACH, WILL CONT' TO MONITOR AND ASSESS.
[2019-07-10] MEDS: cefTRIAXone 1 GM in D5W 50 ML IV SCH (12:05)
[2019-07-10] MEDS: KCL 20 mEq in D5NS 1000 mL 1,000 ML IV SCH (12:06)
--- NOTE | 2019-07-10 15:00 | NUR ---
NURSES NOTES: PT REMAINS STABLE, NO SIGNIFICANT CHANGES NOTED AT THIS TIME, NEEDS MET, CALL LIGHT WITHIN REACH, WILL CONT' TO MONITOR AND ASSESS.
--- NOTE | 2019-07-10 15:50 | NUR ---
DC Planning: faxed referral package for HH f/u , wound care and IM Rocephin 1 gm daily x5 days, attn to Vivian. , tel [phone]. Addendum: 07/10/19 at 1600 by Marcel Neevs RN /Chuy made aware of the dcp to home with home health possible this [facility] [phone]. Bruno [phone]. MIKAYLA Menendez made aware. Addendum: 07/10/19 at 1700 by Jennifer Henderson RN DCP CONFIRMED WITH RIKI (TRADE SHOW MANAGER @ [facility]), THEY ARE ACCEPTING PATIENT. RIKI (INTAKE) WILL CONFIRM WITH CHARGE NURSE REGARDING ROCEPHIN IV ABX ORDER.
--- NOTE | 2019-07-10 17:12 | NUR ---
HOME HEALTH IAN LYN FROM [facility], PER RIKI, SHE IS WAITING FOR THE PHARMACY TO CALL HER BACK ABOUT THE ROCEPHIN. RIKI WILL CALL [facility] SOON SHE HEARS FROM THE PHARMACY
--- NOTE | 2019-07-10 18:00 | NUR ---
HOMEHEALTH RECEIVED CALL FROM [facility]. ANTIBIOTIC WILL BE DELIVERED TONIGHT. NOTIFIED PATIENT'S BROTHER WHO IS IN THE ROOM.
[2019-07-10 18:08] VITALS: BP_SYST 151
[2019-07-10 19:53] VITALS: BP_SYST 99
[2019-07-10 20:15] VITALS: BP_SYST 99
--- NOTE | 2019-07-10 20:26 | NUR ---
DC'D TERRELL PICC LINE TERRELL PICC LINE DC'D PER MD ORDER, 41 CM NOTED AND COMPARED WITH INITIAL PLACEMENT DOCUMENTATION, CATHETER TIP INTACT. PRESSURE APPLIED WITH DRESSING, NO ACTIVE BLEEDING NOTED. PT TOLERATED WELL.
[2019-07-10] MEDS ORDERED: ROCPM1 IM (20:30)
--- NOTE | 2019-07-10 20:45 | NUR ---
DISCHARGE Patient given medication reconciliation form and D/C instructions. Exit Care provided. Patient verbalized understanding. Wheelchair bound for discharge to home. Patient in stable condition, ID band removed. TERRELL PICC line removed, intact and dressing applied, no active bleeding. Rx of given for Rocephin 1gm IM daily for 5 days. Patient educated on pain management. All belongings sent with patient. Family at bedside.
[2019-07-10] MEDS: ENOXAPARIN SODIUM 30 MG/0.3 ML SYRINGE SUBCUT SCH (21:22)
--- NOTE | 2019-07-10 21:30 | NUR ---
PT DISCHARGE HOME WITH THE FAMILY.
--- NOTE | 2019-07-18 11:39 | NUR ---
DISCHARGE FOLLOW UP PHONE CALL / TECH PHONED PATIENT, . PATIENT STATED HE IS FEELING BETTER, HOME HEALTH SERVICES ARE GOING DAILY FOR WOUND CARE AND ANTIBIOTIC SHOTS. UNDERSTOOD DISCHARGE INSTRUCTIONS. HAS FOLLOWED UP WITH DR. GEE AND DR. KHAN. HAS NO QUESTIONS OR CONCERNS. WILL CALL HOSPITAL IF ANY QUESTIONS IN THE FUTURE.
== END 2019-07-10 21:30 | disposition home health service (06) | DRG 414 ==
LOC: SED 12:18 → STU 15:27 → SMU 07-04 17:35
PROVIDERS: ADMIT Family Medicine; ATTEND Family Medicine
PROC: 0FT40ZZ Resection of Gallbladder, Open Approach (ICD-10-PCS; 2019-07-06)
PROC: 0FN40ZZ Release Gallbladder, Open Approach (ICD-10-PCS; 2019-07-06)
PROC: BF131ZZ Fluoroscopy of Gallbladder and Bile Ducts using Low Osmolar Contrast (ICD-10-PCS; 2019-07-06)
PROC: 0DNU0ZZ Release Omentum, Open Approach (ICD-10-PCS; principal; 2019-07-06 13:00)
DX: K80.10 Calculus of gallbladder with chronic cholecystitis without obstruction (principal); J18.9 Pneumonia, unspecified organism; R53.2 Functional quadriplegia; E87.1 Hypo-osmolality and hyponatremia; R18.8 Other ascites; N13.6 Pyonephrosis; E11.9 Type 2 diabetes mellitus without complications; E27.9 Disorder of adrenal gland, unspecified; I10 Essential (primary) hypertension; K66.0 Peritoneal adhesions (postprocedural) (postinfection); K82.8 Other specified diseases of gallbladder; N31.9 Neuromuscular dysfunction of bladder, unspecified; Z87.440 Personal history of urinary (tract) infections; Z87.442 Personal history of urinary calculi; Z87.891 Personal history of nicotine dependence; Z98.1 Arthrodesis status; Z88.2 Allergy status to sulfonamides
CPT/HCPCS: 36415; 71045; 71250-TC; 73030; 74018; 74160-TC; 74300; 76700-TC; 78226; 80048; 80053; 81000-TC; 82962; 83735-TC; 85025; 85610-TC; 85730-TC; 87040-TC; 87070-TC; 87075-TC; 87081; 87086; 87186-TC; 88304; 94010; 94760; 96365; 96372; 99285; A9537; C1727; C1751; C1769; G0378; J0456; J0692; J0696; J1650; J1885; J1956; J2250; J2270; J2274; J2370; J2405; J2543; J2704; J2710; J3010; J3480; J3490; J7030; J7042; J7060; J7120; Q9967

== ENCOUNTER 2020-08-22 22:09 | Emergency (ER) | payer OTHER ==
[~2020-08-22] VITALS: Ht 175.3 cm; Wt 108.9 kg
[~2020-08-22 22:09] MED LIST: ROCPM1 IM
[2020-08-23] VITALS: BP_SYST 94
[2020-08-23 03:00] LABS: CLARITY/URINE CLOUDY (CLEAR); COLOR,URINE YELLOW (YELLOW)
[2020-08-23 03:01] LABS: BACTERIA,URINE MANY /HPF (None Seen); BILIRUBIN,URINE NEGATIVE (NEGATIVE); BLOOD, URINE 3+ (NEGATIVE); GLUCOSE,URINE NEGATIVE (NEGATIVE); KETONES,URINE NEGATIVE (NEGATIVE); LEUKOCYTE ESTERASE ,URINE 3+ (NEGATIVE); NITRITE, URINE POSITIVE (NEGATIVE); PROTEIN URINE 2+ (NEGATIVE); RBC,URINE >100 /HPF (0-3); UROBILINOGEN,URINE 0.2 (0.2-1.0); WBC,URINE >100 /HPF (0-3)
[2020-08-23] MEDS ORDERED: cefTRIAXone 1 GM in LIDOCAINE 1%, 20 ML MDV 2.1 ML IM ONE (03:15)
[2020-08-23] MEDS ORDERED: KETOROLAC TROMETHAMINE 60 MG/2 ML VIAL IM ONE (03:15)
[2020-08-23] MEDS ORDERED: LIDOCAINE 1%, 20 ML MDV 20 ML ONE (03:22)
[2020-08-23] MEDS ORDERED: cefTRIAXone 1 GM VIAL ONE (03:22)
[2020-08-23 03:41] VITALS: BP_SYST 94
== END 2020-08-23 03:41 | disposition home or self-care (01) ==
LOC: SED 22:09
DX: N39.0 Urinary tract infection, site not specified (principal); G82.20 Paraplegia, unspecified; F17.200 Nicotine dependence, unspecified, uncomplicated
CPT/HCPCS: 81000; 87086; 96372; 99284; J0696; J1885; J2001

== ENCOUNTER 2020-10-09 20:37 | Inpatient (IN) | payer OTHER, SELFPAY ==
[~2020-10-09] VITALS: Ht 180.3 cm; Wt 108.9 kg
[2020-10-09 20:45] VITALS: BP_SYST 148
--- NOTE | 2020-10-09 21:10 | NUR ---
Patient to ER bed 5 to gown for evaluation. Side rails up. Report given to Vijaya DEGROOT.
--- NOTE | 2020-10-09 21:15 | NUR ---
Patient BIB by family from home. c/o abdominal pain x 1 week. Patient had left abdominal pain for one week, no vomitting or diarrhea. Hx cervical Fx -Paraplegia. A/O,X4, no vomitting or nause, left abdominal pain, pain rate 10/10, radiate to lower back.
--- NOTE | 2020-10-09 21:40 | NUR ---
URINE SPECIMEN SENT TO LAB FOR ANALYSIS
--- NOTE | 2020-10-09 21:44 | NUR ---
LAUNDRY SUPERINTENDENT AT BEDSIDE DRAWING BLOOD
[2020-10-09] MEDS ORDERED: NACL 0.9% 1,000 ML IV ONE ×2 (21:45→23:45)
[2020-10-09] MEDS ORDERED: ONDANSETRON HCL 4 MG/2 ML VIAL IVP ONE (21:45)
[2020-10-09] MEDS ORDERED: MORPHINE 4 MG/ML INJ. SYRINGE IVP ONE (21:45)
--- NOTE | 2020-10-09 22:00 | NUR ---
22G IV HL PLACED INTO RIGHT ARM
[2020-10-09 22:14] LABS: BILIRUBIN,URINE NEGATIVE (NEGATIVE); BLOOD, URINE 1+ (NEGATIVE); CLARITY/URINE CLEAR (CLEAR); COLOR,URINE YELLOW (YELLOW); GLUCOSE,URINE NEGATIVE (NEGATIVE); KETONES,URINE NEGATIVE (NEGATIVE); LEUKOCYTE ESTERASE ,URINE 3+ (NEGATIVE); NITRITE, URINE POSITIVE (NEGATIVE); PH,URINE 8.5 (5.0-8.0); PROTEIN URINE TRACE (NEGATIVE); UROBILINOGEN,URINE 0.2 (0.2-1.0)
[2020-10-09 22:20] LABS: CALCIUM 8.8 mg/dL (8.4-11.0); CREATININE 0.94 mg/dL (0.55-1.30); POTASSIUM 3.6 mmol/L (3.5-5.1)
[2020-10-09 22:22] LABS: HEMATOCRIT 40.2 % (36-54); HEMOGLOBIN 13.8 g/dL (14.0-18.0); MEAN CORPUSCULAR HEMOGLOBIN 30 pg (27-31); MEAN CORPUSCULAR VOLUME 87 fL (79.0-98.0); RED BLOOD CELL COUNT(AUTO) 4.59 MIL/uL (4.2-6.2); WHITE BLOOD COUNT (AUTO) 5.7 K/uL (4.8-10.8)
--- NOTE | 2020-10-09 22:22 | NUR ---
Patient transported to radiology via gurney, accompanied by RT.
[2020-10-09 22:23] LABS: MEAN CORPUSCULAR HGB CONC 34 % (32-36); PLATELET COUNT (AUTO) 251 K/uL (130-430); RED CELL DISTRIBUTION WIDTH 13.2 % (9.0-15.0)
[2020-10-09 22:25] LABS: BAND % (MANUAL) 1 % (0-6); BASOPHILS % (MANUAL) 1 % (0-2); EOSINOPHILS % (MANUAL) 2 % (0-7); LYMPHOCYTES % (MANUAL) 27 % (20-46); MONOCYTES % (MANUAL) 9 % (0-11)
[2020-10-09 22:26] LABS: BACTERIA,URINE MANY /HPF (None Seen); WBC,URINE >100 /HPF (0-3)
[2020-10-09 22:26] LABS: ALBUMIN 3.5 g/dL (3.4-4.8); TOTAL BILIRUBIN 0.6 mg/dL (0.0-1.0)
--- NOTE | 2020-10-09 22:35 | NUR ---
Patient came back from CT scan.
[2020-10-09] MEDS ORDERED: cefTRIAXone 1 GM VIAL ONE (22:58)
[2020-10-09] MEDS ORDERED: cefTRIAXone 1 GM in D5W 50 ML IV ONE (23:00)
[2020-10-09] MEDS ORDERED: KETOROLAC TROMETHAMINE 30 MG VIAL ONE (23:45)
[2020-10-09] MEDS ORDERED: KETOROLAC TROMETHAMINE 30 MG VIAL IVP ONE (23:45)
[2020-10-10] MEDS ORDERED: KCL 20 mEq in D5/0.45NS 1000mL 1,000 ML IV ONE
[2020-10-10] MEDS ORDERED: ACETAMINOPHEN 325 MG TABLET PO PRN
--- NOTE | 2020-10-10 00:18 | NUR ---
Provided blanket and pillow for patient.
--- NOTE | 2020-10-10 00:24 | NUR ---
Called In-charge nurse for a room, They will call back when room is available.
--- NOTE | 2020-10-10 00:46 | NUR ---
Swabs COVID and send to lab.
--- NOTE | 2020-10-10 02:07 | NUR ---
Patient will be admitted to care of Dr. Beverly. Admitted to M/S unit. Will go to room 101A. Belongings list completed. Complete and up to date summary report printed. SBAR report to be given at bedside with opportunity for questions.
--- NOTE | 2020-10-10 02:18 | NUR ---
ADMISSION NOTE Received patient from ER via gurney. Patient admitted with diagnosis of ACUTE PYELONEPHRITIS . Patient is awake, alert, oriented X 4. Patient oriented to hospital room, call light, toileting, pain management and safety-teach back done. Personal belongings checked and Belongings List documented. Call light within reach.
[2020-10-10 02:40] VITALS: BP_SYST 100
--- NOTE | 2020-10-10 06:39 | NUR ---
CONSUL: CONSULT CALLED FOR DR. ARLETTE PEARSON I SPOKE WITH NANCY EXCHANGE REASON FOR CONSULT: ACUTE PYELONEPHRITIS REQUESTING CONSULT: DR. GEE LEAD QUALITY TECHNICIAN PHONE NUMBER: [phone]
--- NOTE | 2020-10-10 07:15 | NUR ---
opening note received sbar from night RN, patient in bed, bed in low and locked position, call light within reach
--- NOTE | 2020-10-10 07:30 | NUR ---
CLOSING NOTE: ENDORSED CARE TO DAYSHIFT RN. PATIENT IS IN BED, RESTING. NO ACUTE DISTRESS. BREATHING IS EVEN AND NONLABORED ON ROOM AIR. IV SITE IS PATENT AND INTACT. CONDOM CATHETER IS IN PLACE. ALL NEEDS MET. BED IS LOCKED AT LOWEST POSITION. SIDE RAILS UP. BED ALARM ON. CALL LIGHT IS WITH PATIENT. SAFETY AND FALL PRECAUTIONS IN PLACE.
[2020-10-10 08:00] VITALS: BP_SYST 98
--- NOTE | 2020-10-10 08:00 | NUR ---
NURSE NOTE OBTAINED VS, PATIENT IN BED, RESPIRATIONS EVEN, NON LABORED, BED IN LOW AND LOCKED POSITION, CALL LIGHT WITHIN REACH, PATIENT DENIES ANY PAIN OR DISCOMFORT. IVF RUNNING ORDERED.
--- NOTE | 2020-10-10 09:51 | NUR ---
Nutrition Update Gilson Scale 14 noted. Pt admitted for acute pyelonephritis. Diet: regular BMI: 33.5 kg/m2 RD to follow per nutrition care standards.
[2020-10-10] MEDS: MEROPENEM 1 GM IVPB PREMIX 50 ML IV SCH ×2 (10:17→21:47)
--- NOTE | 2020-10-10 10:30 | NUR ---
PAIN PATIENT COMPLAINED OF PAIN 7/10 TO FLANK, REPOSITIONED PATIENT, ADMINISTERED MEDICATION
[2020-10-10] MEDS: HYDROmorphone 1 MG INJ. 1 MG/ML AMPUL IVP PRN ×3 (10:57→21:54)
--- NOTE | 2020-10-10 12:00 | NUR ---
NURSE NOTE PATIENT IN BED, RESPIRATIONS EVEN, NON LABORED, BED IN LOW AND LOCKED POSITION CALL LIGHT WITHIN REACH, BED ALARM ON. IVF RUNNING ORDERED. PATIENT STATES PAIN TOLERABLE 2/10
[2020-10-10 12:48] VITALS: BP_SYST 105
--- NOTE | 2020-10-10 14:36 | NUR ---
NURSE NOTE EMPTIED CATHETER, 200ML EFREN URINE, FOUL SMELLING
--- NOTE | 2020-10-10 15:39 | NUR ---
NURSE NOTE PATIENT IN BED, IVF'S RUNNING ORDERED, BED IN LOW AND LOCKED POSITION CALL LIGHT WITHIN REACH, DENIES ANY PAIN OR DISCOMFORT
--- NOTE | 2020-10-10 15:51 | NUR ---
INFORMED DR GEE THAT DR PETTY IS UNAVAILABLE FOR CONSULT, AND THE DR. VINES/ARLETTE DECLINED THE CONSULT.
[2020-10-10 16:24] VITALS: BP_SYST 104
--- NOTE | 2020-10-10 16:24 | NUR ---
ANOTHER CALL WAS DONE TO DR MICHEL CHONG THE UROLOGIST. HIS CO ASSOCIATE, DR CUEVAS REJECTED THE CONSULT BUT DR GEE INSISTED TO TRY AND TRY AGAIN. LEFT A MESSAGE TO DR CHONG ON HIS CELL. ALSO PAGED DR CHONG DIRECTLY.
[2020-10-10] MEDS: KCL 20 mEq in D5/0.45NS 1000mL 1,000 ML IV SCH (17:48)
--- NOTE | 2020-10-10 17:51 | NUR ---
nurse note patient complained of pain 02/20, repositioned medication given
--- NOTE | 2020-10-10 17:59 | NUR ---
nurse note emptied patients catheter, 150ml urine, lencho, foul smelling
--- NOTE | 2020-10-10 19:27 | NUR ---
nurse note provided sbar to night RN, patient in bed, respirations even, non labored, bed in low and locked position, call light within reach,
--- NOTE | 2020-10-10 19:30 | NUR ---
INITIAL NOTES: RECEIVED REPORT FROM DAYSHIFT RN. PATIENT IS IN BED, RESTING. BREATHING IS EVEN AND NONLABORED ON ROOM AIR. IV SITE IS PATENT AND INTACT. CONDOM CATHETER NOTED AND IN PLACE. BED IS LOCKED AT LOWEST POSITION. BED ALARM ON. SIDE RAILS UP. CALL LIGHT IS WITH PATIENT. SAFETY AND FALL PRECAUTIONS IN PLACE.
[2020-10-10 20:00] VITALS: BP_SYST 150
[2020-10-10] MEDS: ENOXAPARIN SODIUM 40 MG/0.4 ML SYRINGE SUBCUT SCH (21:45)
--- NOTE | 2020-10-10 21:45 | NUR ---
ROUNDS: PATIENT IS IN BED, RESTING. CONDOM CATHETER CHANGED AT THIS TIME. NO ACUTE DISTRESS. BREATHING IS EVEN AND NONLABORED. CALL LIGHT IS WITH PATIENT. SAFETY AND FALL PRECAUTIONS IN PLACE.
--- NOTE | 2020-10-11 00:05 | NUR ---
ROUNDS: PATIENT IS IN BED, SLEEPING. NO SIGNS OF ACUTE DISTRESS. EVEN AND NONLABORED RESPIRATIONS. CALL LIGHT IS WITH PATIENT. SAFETY AND FALL PRECAUTIONS IN PLACE.
[2020-10-11 00:20] VITALS: BP_SYST 132
--- NOTE | 2020-10-11 02:32 | NUR ---
ROUNDS: PATIENT IS SLEEPING IN BED. NO S/S OF ACUTE DISTRESS. RESPIRATIONS ARE EVEN AND NONLABORED. CALL LIGHT IS WITH PATIENT. SAFETY AND FALL PRECAUTIONS IN PLACE.
[2020-10-11] MEDS: KCL 20 mEq in D5/0.45NS 1000mL 1,000 ML IV SCH ×3 (04:23→21:17)
[2020-10-11] MEDS: HYDROmorphone 1 MG INJ. 1 MG/ML AMPUL IVP PRN ×3 (05:53→19:04)
--- NOTE | 2020-10-11 06:00 | NUR ---
PAIN/NAUSEA: PATIENT COMPLAINED OF FLANK PAIN AND NAUSEA. DILAUDID 1MG AND ZOFRAN 4MG INDICATED. EDUCATED PATIENT ON INDICATIONS AND SIDE EFFECTS OF MEDICATIONS. PATIENT VERBALIZED UNDERSTANDING. MEDICATION ADMINISTERED PER MD ORDER. PATIENT TOLERATED WELL. WILL CONTINUE TO MONITOR AND REASSESS.
[2020-10-11] MEDS: ONDANSETRON HCL 4 MG/2 ML VIAL IVP PRN (06:03)
--- NOTE | 2020-10-11 07:15 | NUR ---
CLOSING NOTE: ENDORSED CARE TO DAYSHIFT RN. PATIENT IS IN BED, RESTING. NO ACUTE DISTRESS. BREATHING IS EVEN AND NONLABORED ON ROOM AIR. IV SITE IS PATENT AND INTACT. CONDOM CATHETER IS IN PLACE. CLOUDY, YELLOW URINE IS DRAINING TO GRAVITY. ALL NEEDS MET. BED IS LOCKED AT LOWEST POSITION. SIDE RAILS UP. BED ALARM ON. CALL LIGHT IS WITH PATIENT. SAFETY AND FALL PRECAUTIONS IN PLACE.
--- NOTE | 2020-10-11 07:20 | NUR ---
OPENING NOTE RECEIVED SBAR FROM NIGHT RN, PATIENT IN BED, RESPIRATIONS EVEN, NON LABORED, BED IN LOW AND LOCKED POSITION CALL LIGHT WITHIN REACH, BED ALARM ON
[2020-10-11 07:33] LABS: BASOPHILS % (AUTO) 0.4 % (0.0-2.0); EOSINOPHILS # (AUTO) 0.2 K/uL (0.0-0.4); EOSINOPHILS % (AUTO) 3.5 % (0.0-4.0); HEMOGLOBIN 13.6 g/dL (14.0-18.0); LYMPHOCYTES # (AUTO) 1.7 K/uL (1.0-5.5); LYMPHOCYTES % (AUTO) 30.1 % (20.5-51.5); MEAN CORPUSCULAR HEMOGLOBIN 30 pg (27-31); MEAN CORPUSCULAR HGB CONC 34 % (32-36); MEAN CORPUSCULAR VOLUME 89 fL (79.0-98.0); MONOCYTES # (AUTO) 0.6 K/uL (0.0-1.0); MONOCYTES % (AUTO) 10.1 % (1.7-9.3); NEUTROPHILS # (AUTO) 3.2 K/uL (1.8-7.7); NEUTROPHILS % (AUTO) 55.9 % (40.0-70.0); PLATELET COUNT (AUTO) 220 K/uL (130-430); RED BLOOD CELL COUNT(AUTO) 4.51 MIL/uL (4.2-6.2); RED CELL DISTRIBUTION WIDTH 13.5 % (9.0-15.0); WHITE BLOOD COUNT (AUTO) 5.8 K/uL (4.8-10.8)
[2020-10-11 07:49] LABS: CALCIUM 8.4 mg/dL (8.4-11.0); CREATININE 0.97 mg/dL (0.55-1.30); PHOSPHORUS 2.7 mg/dL (2.7-4.5); POTASSIUM 3.7 mmol/L (3.5-5.1)
--- NOTE | 2020-10-11 08:00 | NUR ---
nurse note obtained vs, patient in bed, respirations even, non labored, bed in low and locked position, call light within reach, ivf's running as ordered, feliz draining by gravity, patient denies any pain or discomfort
[2020-10-11 08:01] VITALS: BP_SYST 140
[2020-10-11] MEDS: MEROPENEM 1 GM IVPB PREMIX 50 ML IV SCH ×2 (09:09→21:16)
--- NOTE | 2020-10-11 10:00 | NUR ---
nurse note administered medication, bed in low and locked position call light within reach, bed alarm on
--- NOTE | 2020-10-11 11:18 | NUR ---
TRIED TO CALL ANOTHER UROLOGIST, DR HA PETTY BUT STILL OUT OF TOWN AND WILL BE BACK WEDNESDAY. GAVE TO THE OFFICE, KAREN THE INFO AND REASON OF CONSULT IS ACUTE PYELONEPHRITIS
[2020-10-11 12:00] VITALS: BP_SYST 132
--- NOTE | 2020-10-11 12:22 | NUR ---
nurse note emptied feliz bag, 1700ml urine, lencho. no odor. patient denies any pain or discomfort. bed in low and locked position, call light within reach, bed alarm on
--- NOTE | 2020-10-11 14:55 | NUR ---
CM note: MIKAYLA Castro reported there are no urologist consultation to see the pt so far. MIN Aragon made aware, Michelle MACEDO already left for the day. Dr Garcia made aware by MIKAYLA Castro. CM will f/u with dr. Garcia and Mahesh . Addendum: 10/11/20 at 1537 by Marcel Neves RN >> Per Zakia: ask dr Garcia to call Dr Garcia for the consultation. Per Reshma: she has several attempts to contact the Urologist: and dr. Morales are on vacation till Wednesday, Dr. Garcia declined the consultation. Addendum: 10/11/20 at 1649 by Marcel Neves RN >> Per dr. Garcia: he spoke with dr. Garcia this pm. Said "Dr Garcia will not coming in to see the pt. " Addendum: 10/11/20 at 1651 by Marcel Neves RN >> Tomy, administration office for Alexis made aware.
--- NOTE | 2020-10-11 15:30 | NUR ---
nurse note patient complained of pain to flank, repositioned, administered medication. bed in low and locked position call light within reach, bed alarm on,
[2020-10-11 16:00] VITALS: BP_SYST 128
--- NOTE | 2020-10-11 16:55 | NUR ---
INDUSTRIAL PHARMACISTJuno RASHEED INFORMED THE MESSAGE THAT DR CUEVAS, UROLOGIST STILL DECLINED THE CONSULT EVEN AFTER DR IRAHETA, DIRECTOR OF SUPPLY CHAIN TALKED TO HIM.
--- NOTE | 2020-10-11 17:30 | NUR ---
NURSE NOTE EMPTIED PATIENTS [place], YELLOW, NO CLEAR, NO ODOR. BED IN LOW AND LOCKED POSITION, CALL LIGHT WITHIN REACH, BED ALARM ON
--- NOTE | 2020-10-11 19:21 | NUR ---
CLOSING NOTE PROVIDED SBAR TO NIGHT RN, PATIENT IN BED, RESPIRATIONS EVEN, NON LABORED, BED IN LOW AND LOCKED POSITION CALL LIGHT WITHIN REACH, BED ALARM ON. ENDORSED CARE TO NIGHT RN
[2020-10-11] MEDS: ENOXAPARIN SODIUM 40 MG/0.4 ML SYRINGE SUBCUT SCH (21:15)
[2020-10-12 00:42] VITALS: BP_SYST 150
[2020-10-12 08:00] VITALS: BP_SYST 121
--- NOTE | 2020-10-12 08:15 | NUR ---
Opening Notes/Dilaudid 1 mg IVP Patient is awake, alert and oriented x4. No resp distress noted. Breathing is even and unlabored. Pt remains on room air at this time, saturating at 98%. Patient denies any SOB. IV site on right AC, 22 gauge intact at this time. KCl 20 mEq + D5 1/2 NS @ 100 cc/hr, infusing well at this time. Pt is c/o "sharp" abdomen pain, 04/22, requesting pain medication. Administered Dilaudid 1 mg IVP, tolerated well. Condom catheter in place at this time. Emptied out 1000 cc of clear and yellow urine. Pt ate 50% of breakfast. Pt remains on bedrest at this time. Pt is asking if his urologist, Dr. Stovall will visit him the hospital. Will follow up. All needs met at this time. Safety and fall precautions in place. Bed in lowest position, alarm on, locked. Will continue to monitor.
[2020-10-12] MEDS: MEROPENEM 1 GM IVPB PREMIX 50 ML IV SCH ×2 (08:20→21:02)
[2020-10-12] MEDS: HYDROmorphone 1 MG INJ. 1 MG/ML AMPUL IVP PRN ×4 (08:21→22:37)
--- NOTE | 2020-10-12 10:55 | NUR ---
Notes Patient is sleeping in bed at this time. No resp distress noted. Breathing is even and unlabored. Pt reports relief from pain medication earlier. Pt asked if he would like to be repositioned in bed, pt refusing at this time. Per patient, "Im comfortable right now." Patient was provided hygiene care to brush teeth. All needs met at this time. Will continue to monitor.
[2020-10-12 12:04] VITALS: BP_SYST 140
--- NOTE | 2020-10-12 13:52 | NUR ---
Dilaudid 1 mg IVP Patient is c/o 8/0 abdominal pain, requesting pain medication. Administered Dilaudid 1 mg IVP, tolerated well. Will continue to monitor.
--- NOTE | 2020-10-12 14:00 | NUR ---
Patient is being seen and examined by DR CHAPMAN
[2020-10-12 16:14] VITALS: BP_SYST 154
[2020-10-12] MEDS: KCL 20 mEq in D5/0.45NS 1000mL 1,000 ML IV SCH (18:14)
--- NOTE | 2020-10-12 19:00 | NUR ---
CRITICAL LAB: from Laboratory called with critical lab value UA POSITIVE: ECOLI AND ESBL. Medical record number and patient name verified. Read back of values done. CHANGE OF SHIFT, WILL ENDORSE TO NEXT NURSE TO REPORT TO MD GEE.
[2020-10-12 20:00] VITALS: BP_SYST 134
[2020-10-12] MEDS: ENOXAPARIN SODIUM 40 MG/0.4 ML SYRINGE SUBCUT SCH (21:12)
[2020-10-13] VITALS: BP_SYST 138
[2020-10-13 07:07] LABS: BASOPHILS % (AUTO) 0.4 % (0.0-2.0); EOSINOPHILS # (AUTO) 0.3 K/uL (0.0-0.4); EOSINOPHILS % (AUTO) 5.9 % (0.0-4.0); HEMATOCRIT 42.7 % (36-54); HEMOGLOBIN 14.5 g/dL (14.0-18.0); LYMPHOCYTES # (AUTO) 1.4 K/uL (1.0-5.5); LYMPHOCYTES % (AUTO) 30.5 % (20.5-51.5); MEAN CORPUSCULAR HEMOGLOBIN 30 pg (27-31); MEAN CORPUSCULAR HGB CONC 34 % (32-36); MEAN CORPUSCULAR VOLUME 89 fL (79.0-98.0); MONOCYTES # (AUTO) 0.5 K/uL (0.0-1.0); NEUTROPHILS # (AUTO) 2.4 K/uL (1.8-7.7); NEUTROPHILS % (AUTO) 52.2 % (40.0-70.0); PLATELET COUNT (AUTO) 204 K/uL (130-430); RED BLOOD CELL COUNT(AUTO) 4.79 MIL/uL (4.2-6.2); RED CELL DISTRIBUTION WIDTH 13.8 % (9.0-15.0); WHITE BLOOD COUNT (AUTO) 4.5 K/uL (4.8-10.8)
--- NOTE | 2020-10-13 07:43 | NUR ---
MEDICATION RETURNED TO LIGHT RAIL VEHICLE OPERATOR : LAST NIGHT PRIMARY RN REMOVED LOVENOX 80 MG INSTEAD OF 40 MG , UNABLE TO RETURN IT IN THE PYXIS DUE TO DOSAGE DIFFERENCE , MEDICATION GIVEN TO LIGHT RAIL VEHICLE OPERATOR KATHERINE Martinez
[2020-10-13 07:57] LABS: ALBUMIN 3.2 g/dL (3.4-4.8); CALCIUM 8.8 mg/dL (8.4-11.0); CREATININE 0.94 mg/dL (0.55-1.30); POTASSIUM 3.9 mmol/L (3.5-5.1); TOTAL BILIRUBIN 1.1 mg/dL (0.0-1.0)
[2020-10-13 08:00] VITALS: BP_SYST 140
--- NOTE | 2020-10-13 08:00 | NUR ---
Opening Notes Patient is awake, alert and oriented x4. Pt remains on contact isolation for ESBL and ECOLi in urine. No resp distress noted. Breathing is even and unlabored. Pt remains on room air at this time, saturating at 96%. Denies any SOB. Patient is c/o abdominal pain, 8, requesting pain meds. Administered Dilaudid 1 mg IVP at 0807, tolerated well. IV site on right AC, 22 gauge intact at this time. Hung a new bag of IVF: KCl 20 mEq + D5 1/2 NS @ 100 cc/hr, infusing well at this time. Condom catheter in place, draining by gravity. Emptied out 1000 cc of clear and yellow urine. All needs met at this time. Safety and fall precautions in place. Bed in lowest position, alarm on, locked. Will continue to monitor.
[2020-10-13] MEDS: KCL 20 mEq in D5/0.45NS 1000mL 1,000 ML IV SCH ×2 (08:05→21:02)
[2020-10-13] MEDS: MEROPENEM 1 GM IVPB PREMIX 50 ML IV SCH ×2 (08:05→21:02)
[2020-10-13] MEDS: HYDROmorphone 1 MG INJ. 1 MG/ML AMPUL IVP PRN ×3 (08:07→20:16)
--- NOTE | 2020-10-13 10:25 | NUR ---
Notes Patient is sleeping at this time. No resp distress. NO signs of pain. Will continue to monitor.
[2020-10-13 12:06] VITALS: BP_SYST 129
--- NOTE | 2020-10-13 13:00 | NUR ---
Dilaudid 1 mg IVP Patient is c/o abdominal pain, 04/22. Reports that the pain is constant. Administered Dilaudid 1 mg IVP, tolerated well. Will continue to monitor.
[2020-10-13 16:03] VITALS: BP_SYST 161
--- NOTE | 2020-10-13 18:00 | NUR ---
Patient is being seen and examined by DR CHAPMAN
--- NOTE | 2020-10-13 18:51 | NUR ---
Patient is being seen and examined by DR PETTY
--- NOTE | 2020-10-13 18:56 | NUR ---
Closing Notes Patient is laying in bed, resting at this time. Alert and oriented x4. No resp distress noted. Breathing is even and unlabored. Pt denies any pain at this time. IV site on right AC, 22 gauge intact at this time. KCl 20 mEq + D5 1/2 NS @ 100 cc/hr, infusing well at this time. Condom catheter in place, draining by gravity. Emptied out approximately 1400 cc of clear and yellow urine during shift. Pt remains on isolation precautions. All needs met. Safety and fall precautions in place. Bed in lowest position, alarm on, locked. Will continue to monitor.
[2020-10-13 20:15] VITALS: BP_SYST 112
[2020-10-13] MEDS: ENOXAPARIN SODIUM 40 MG/0.4 ML SYRINGE SUBCUT SCH (20:15)
[2020-10-14] MEDS: HYDROmorphone 1 MG INJ. 1 MG/ML AMPUL IVP PRN ×6 (01:11→23:41)
[2020-10-14 01:59] VITALS: BP_SYST 111
[2020-10-14] MEDS: KCL 20 mEq in D5/0.45NS 1000mL 1,000 ML IV SCH ×2 (05:41→18:43)
[2020-10-14 07:30] LABS: BASOPHILS % (AUTO) 0.3 % (0.0-2.0); EOSINOPHILS # (AUTO) 0.3 K/uL (0.0-0.4); HEMATOCRIT 42.1 % (36-54); HEMOGLOBIN 14.2 g/dL (14.0-18.0); LYMPHOCYTES # (AUTO) 1.6 K/uL (1.0-5.5); LYMPHOCYTES % (AUTO) 31.8 % (20.5-51.5); MEAN CORPUSCULAR HEMOGLOBIN 30 pg (27-31); MEAN CORPUSCULAR HGB CONC 34 % (32-36); MEAN CORPUSCULAR VOLUME 89 fL (79.0-98.0); MONOCYTES # (AUTO) 0.7 K/uL (0.0-1.0); NEUTROPHILS # (AUTO) 2.5 K/uL (1.8-7.7); NEUTROPHILS % (AUTO) 48.9 % (40.0-70.0); PLATELET COUNT (AUTO) 204 K/uL (130-430); RED BLOOD CELL COUNT(AUTO) 4.73 MIL/uL (4.2-6.2); RED CELL DISTRIBUTION WIDTH 13.4 % (9.0-15.0)
--- NOTE | 2020-10-14 07:30 | NUR ---
INITIAL ROUNDS PATIENT AWAKE LAYING IN BED, A & O X 4, RESTING COMFORTABLY, ON ROOM AIR, UNLABORED WITHOUT DISTRESS, IV WITHOUT REDNESS OR INFILTRATION, IV FLUIDS RUNNING ORDERED, [place] CATHETER SECURED IN PLACE WITHOUT KINKS AND BAG OFF THE FLOOR. WITHOUT PAIN OR DISCOMFORT. Addendum: 10/14/20 at 1054 by Ne Kiran RN ON FALL AND CONTACT PRECAUTIONS, BED IN LOWEST POSITION, CALL LIGHT WITHIN REACH AND BED ALARM ON.
--- NOTE | 2020-10-14 07:45 | NUR ---
UROLOGY ROUNDS PATIENT SEEN BY DR. PETTY AND DISCUSSED PATIENT PLAN OF CARE.
[2020-10-14 08:00] VITALS: BP_SYST 106
[2020-10-14 08:16] LABS: ALBUMIN 3.1 g/dL (3.4-4.8); CALCIUM 8.7 mg/dL (8.4-11.0); CREATININE 0.92 mg/dL (0.55-1.30); POTASSIUM 4.1 mmol/L (3.5-5.1); TOTAL BILIRUBIN 1.1 mg/dL (0.0-1.0)
[2020-10-14] MEDS: POLYETHYLENE GLYCOL 3350, 17 GM/ POWD.PACK PO SCH (08:57)
[2020-10-14] MEDS: MEROPENEM 1 GM IVPB PREMIX 50 ML IV SCH ×2 (09:02→22:05)
--- NOTE | 2020-10-14 09:45 | NUR ---
CONDOM CATH CHANGE CLEANED PERINEAL AREA, DRIED AND APPLIED NEW CONDOM CATHETER.
--- NOTE | 2020-10-14 10:05 | NUR ---
RADIOLOGY NEWS WIRE PHOTO OPERATOR TRANSPORTED PATIENT TO RENAL SCAN VIA GURNEY. PATIENT STABLE AND UNLABORED.
[2020-10-14 12:57] VITALS: BP_SYST 106
--- NOTE | 2020-10-14 14:52 | NUR ---
Patient given information for F/U with Dr Rosado at [facility]-[address], [facility] phone # [phone]. Patient instructed to make appt for nephrectomy-he has to make the appt because he is a new patient at [facility]
[2020-10-14 15:51] VITALS: BP_SYST 110
--- NOTE | 2020-10-14 16:26 | NUR ---
Discharge Planning: DCP faxed pt referral to [facility] (p [phone]) DCP to follow up Addendum: 10/14/20 at 1636 by Anna Marie Wing DP DCP spoke to Edith at [facility] (p [phone]) Edith will set up IV ABX with Katie Carr.
[2020-10-14 17:53] LABS: PROTHROMBIN TIME 10.7 SECS (9.5-12.5)
--- NOTE | 2020-10-14 18:50 | NUR ---
CLOSING NOTES PATIENT LAYING DOWN, ON ROOM AIR WITHOUT SIGNS OF ACUTE DISTRESS, HYDROMOPHONE HCL 1MG GIVEN FOR PAIN OF 9/10, IV PATENT, WITHOUT REDNESS OR INFILTRATION, IV FLUIDS RUNNING ORDERED, CONDOM CATH IN PLACE WITHOUT KINKS AND DRAINING BY GRAVITY, BED IN LOWEST POSITION, BRAKES LOCKED, BED ALARM ON, CALL LIGHT WITHIN REACH, ON CONTACT, SAFETY AND FALL PRECAUTIONS. ALL NEEDS MET. WILL ENDORSE CARE TO ADDICTIONS COUNSELOR.
[2020-10-14 19:00] VITALS: BP_SYST 154
[2020-10-14] MEDS: ENOXAPARIN SODIUM 40 MG/0.4 ML SYRINGE SUBCUT SCH (22:04)
--- NOTE | 2020-10-15 01:55 | NUR ---
MID SHIFT NOTE: MID SHIFT NOTE: PT MEDICATED X1 FOR PAIN W DILAUDID. PT THEN HAD CONDOM SECTION OF CATHETER SET REPLACED. ADDITIONALLY, GOWN, CHUX, AND BED LINENS ALL CHANGED.
[2020-10-15] MEDS: KCL 20 mEq in D5/0.45NS 1000mL 1,000 ML IV SCH ×2 (05:29→16:43)
[2020-10-15] MEDS: HYDROmorphone 1 MG INJ. 1 MG/ML AMPUL IVP PRN ×4 (06:47→20:51)
[2020-10-15 07:45] VITALS: BP_SYST 112
--- NOTE | 2020-10-15 07:45 | NUR ---
INITIAL ROUNDS PATIENT LAYING IN BED, A & O X 4, ON ROOM AIR, WITHOUT SIGNS OF RESPIRATORY DISTRESS, IV PATENT, WITHOUT SIGNS OF REDNESS AND INFILTRATION, IV FLUIDS RUNNING ORDERED, CONDOM CATHETER DRAINING BY GRAVITY, WITHOUT KINKS AND OFF THE FLOOR, URINE IS YELLOW/ EFREN AND CLEAR. CALL LIGHT WITHIN REACH, BED IN LOWEST POSITION, BRAKES LOCKED, BED ALARM ON, ON FALL, SAFETY AND CONTACT PRECAUTIONS.
[2020-10-15] MEDS: MEROPENEM 1 GM IVPB PREMIX 50 ML IV SCH ×2 (09:16→20:59)
[2020-10-15] MEDS: POLYETHYLENE GLYCOL 3350, 17 GM/ POWD.PACK PO SCH (09:16)
--- NOTE | 2020-10-15 10:18 | NUR ---
Discharge Planning DCP spoke to Edith at [facility] (p [phone]) pattient accepted, Edith set up IV ABX with [facility] meds will be delivered after 6:00pm. DCP made CM aware.
--- NOTE | 2020-10-15 11:19 | NUR ---
IV INFILTRATED: IV RE SITED AT RIGHT WRIST USING G# 22,CONTINUE IV FLUIDS ORDERED.
[2020-10-15 12:46] VITALS: BP_SYST 100
[2020-10-15 16:33] VITALS: BP_SYST 101
--- NOTE | 2020-10-15 18:25 | NUR ---
MIDLINE PLACEMENT: PICC LINE NURSE CAME AND SPOKE WITH LENA GARZA FOR MIDLINE PLACEMENT FOR HOME IV ANTIBIOTICS X 10 DAYS.
--- NOTE | 2020-10-15 18:59 | NUR ---
CLOSING NOTES PATIENT LAYING IN BED, A & OX4, PICC LINE JUST INSERTED, PATENT, PATIENT TOLERATED WELL, WITHOUT PAIN ,ON ROOM AIR WITHOUT SIGNS OF RESPIRATORY DISTRESS, CONDOM CATH DRAINING TO GRAVITY AND BAG OFF THE FLOOR, YELLOW CLEAR URINE NOTED, PERIPHERAL IV FLUIDS RUNNING ORDERED, BED IN LOWEST POSITION, BRAKES LOCKED, BED ALARM ON, FALL, SAFETY AND CONTACT PRECAUTIONS. ALL NEEDS MET, WILL ENDORSE CARE TO EPILEPSY PHYSICIAN RN. Addendum: 10/15/20 at 1923 by Ne Kiran RN MIDLINE INSERTED NOT PICC LINE.
--- NOTE | 2020-10-15 19:30 | NUR ---
OPENING NOTE: RECEIVED CARE OF PATIENT AND SBAR REPORT. PATIENT IS IN BED, RESTING. NO ACUTE DISTRESS. BREATHING IS EVEN AND NONLABORED ON ROOM AIR. IV SITE IS PATENT AND INTACT. CONDOM CATHETER IS IN PLACE AND IS DRAINING TO GRAVITY. BED IS LOCKED AT LOWEST POSITION. SIDE RAILS UP. BED ALARM ON. CALL LIGHT IS WITH PATIENT. SAFETY, FALL, AND CONTACT PRECAUTIONS IN PLACE. WILL MONITOR.
[2020-10-15 20:00] VITALS: BP_SYST 105
[2020-10-15] MEDS: ENOXAPARIN SODIUM 40 MG/0.4 ML SYRINGE SUBCUT SCH (20:51)
--- NOTE | 2020-10-15 20:51 | NUR ---
PAIN/DILAUDID PT REQUESTING DILAUDID FOR SEVERE PAIN. MEDICATION ACTIONS AND POTENTIAL SIDE EFFECTS DISCUSSED, PT VERBALIZED UNDERSTANDING. PT TOLERATED WELL. WILL MONITOR.
--- NOTE | 2020-10-16 | NUR ---
NPO PT PLACED NPO FOR SURGERY TOMORROW. NPO CONE PLACED AT BEDSIDE. PT VERBALIZED UNDERSTANDING.
[2020-10-16] MEDS: KCL 20 mEq in D5/0.45NS 1000mL 1,000 ML IV SCH ×3 (00:49→21:27)
[2020-10-16] MEDS: HYDROmorphone 1 MG INJ. 1 MG/ML AMPUL IVP PRN ×6 (00:51→21:26)
--- NOTE | 2020-10-16 00:51 | NUR ---
PAIN/DILAUDID PT REQUESTING DILAUDID FOR SEVERE PAIN. MEDICATION ACTIONS AND POTENTIAL SIDE EFFECTS DISCUSSED, PT VERBALIZED UNDERSTANDING. PT TOLERATED WELL. WILL MONITOR.
[2020-10-16 01:26] VITALS: BP_SYST 132
--- NOTE | 2020-10-16 03:15 | NUR ---
RN ROUNDS: PATIENT IN BED, IVF'S RUNNING ORDERED, BED IN LOW AND LOCKED POSITION CALL LIGHT WITHIN REACH, DENIES ANY PAIN OR DISCOMFORT
--- NOTE | 2020-10-16 05:02 | NUR ---
PAIN/DILAUDID PT REQUESTING DILAUDID FOR SEVERE PAIN. MEDICATION ACTIONS AND POTENTIAL SIDE EFFECTS DISCUSSED, PT VERBALIZED UNDERSTANDING. PT TOLERATED WELL. WILL MONITOR.
--- NOTE | 2020-10-16 06:40 | NUR ---
CHG BATH GIVEN. FRESH GOWN AND LINEN PROVIDED.
--- NOTE | 2020-10-16 06:51 | NUR ---
CLOSING NOTES PATIENT LAYING IN BED, A&OX4. PT HAS MIDLINE, PATENT AND INFUSING FLUIDS AT ORDERED RATE. NO SIGNS OF RESPIRATORY DISTRESS, BREATHING IS UNLABORED TO ROOM AIR. CONDOM CATH DRAINING TO GRAVITY AND BAG OFF THE FLOOR, YELLOW CLEAR URINE NOTED. BED IN LOWEST POSITION, BRAKES LOCKED, BED ALARM ON, FALL, SAFETY AND CONTACT PRECAUTIONS. PT TO HAVE SURGERY THIS MORNING. ALL NEEDS MET, WILL ENDORSE CARE TO DAY SHIFT RN.
--- NOTE | 2020-10-16 07:45 | NUR ---
ASSUMPTION OF CARE: PT OFF UNIT TO OR FOR CYSTOSCOPY, LEFT URETERAL STENT PLACEMENT, VIA BED, IN STABLE CONDITION, INFORMED CONSENT SIGNED BY PT AND PLACED ON CHART, VS WNL, WILL CONT' WITH PLAN OF CARE.
[2020-10-16] MEDS ORDERED: ONDANSETRON HCL 4 MG/2 ML VIAL IVP PRN (08:15)
[2020-10-16] MEDS ORDERED: fentaNYL CITRATE/PF 100 MCG/2 ML AMP IVP PRN ×2 (08:15)
[2020-10-16] MEDS: POLYETHYLENE GLYCOL 3350, 17 GM/ POWD.PACK PO SCH (09:00)
[2020-10-16 09:05] VITALS: BP_SYST 114
--- NOTE | 2020-10-16 09:05 | NUR ---
NURSES NOTES: PT RETURNED TO ROOM FROM PACU, S/P CYSTOSCOPY, LEFT URETERAL STENT PLACEMENT, A/A/OAX4, VSS, PAIN LEVEL=7/10 VIA NUMERIC SCALE, WILL MEDICATE ASRDERED BY Lamine, CALL LIGHT PLACED WITHIN REACH, WILL CONT' TO MONITOR AND ASSESS.
--- NOTE | 2020-10-16 09:30 | NUR ---
TERRESTRIAL ECOLOGIST: MORNING MEDS GIVEN, PER ORDERED BY Lamine, DILAUDID 1MG IVP GIVEN FOR PAIN, TOLERATED WELL, WILL CONT' TO MONITOR AND ASSESS.
[2020-10-16] MEDS: MEROPENEM 1 GM IVPB PREMIX 50 ML IV SCH ×2 (10:51→21:26)
[2020-10-16 12:29] VITALS: BP_SYST 114
[2020-10-16 16:25] VITALS: BP_SYST 114
[2020-10-16 16:38] VITALS: BP_SYST 132
--- NOTE | 2020-10-16 17:30 | NUR ---
PAIN: PT C/O PAIN 8/10 VIA NUMERIC SCALE, DILAUDID 1MG IVP GIVEN, PER ORDERED BY Lamine TOLERATED WELL, PT MADE COMFORTABLE, NEEDS MET, CALL LIGHT PLACED WITHIN REACH, WILL CONT' TO MONITOR AND ASSESS.
--- NOTE | 2020-10-16 19:30 | NUR ---
OPENING NOTE: RECEIVED CARE OF PATIENT FROM DAYSHIFT RN. PATIENT IS RESTING IN BED. NO ACUTE S/S OF DISTRESS. BREATHING IS EVEN AND NONLABORED ON ROOM AIR. IV SITE IS PATENT AND INTACT. [place] CATHETER IS IN PLACE AND IS DRAINING TO GRAVITY. BED IS LOCKED AT LOWEST POSITION. SIDE RAILS UP. BED ALARM ON. CALL LIGHT IS WITH PATIENT. SAFETY, FALL, AND CONTACT PRECAUTIONS IN PLACE. WILL MONITOR.
[2020-10-16 20:00] VITALS: BP_SYST 136; BP_SYST 141
[2020-10-16] MEDS: ENOXAPARIN SODIUM 40 MG/0.4 ML SYRINGE SUBCUT SCH (21:26)
--- NOTE | 2020-10-16 21:30 | NUR ---
PAIN/DILAUDID PT REQUESTING DILAUDID FOR SEVERE PAIN 05/23. MEDICATION ACTIONS AND POTENTIAL SIDE EFFECTS DISCUSSED, PT VERBALIZED UNDERSTANDING. PT TOLERATED WELL. WILL MONITOR.
[2020-10-16] MEDS: ONDANSETRON HCL 4 MG/2 ML VIAL IVP PRN (21:32)
[2020-10-17 00:37] VITALS: BP_SYST 113
[2020-10-17] MEDS: HYDROmorphone 1 MG INJ. 1 MG/ML AMPUL IVP PRN ×4 (01:39→21:07)
--- NOTE | 2020-10-17 01:40 | NUR ---
RN ROUNDS PER PT PAIN IS 9 OUT OF 10 AGAIN, REQUESTS PAIN MEDICATION. GAVE PT PRN DILAUDID FOR SEVERE PAIN. PT IS NOW RESTING, BREATHING EVEN AND UNLABORED TO ROOM AIR. IV IS RUNNING AT ORDERED RATE. [place] IS DRAINING TO GRAVITY. WILL CONTINUE TO MONITOR.
--- NOTE | 2020-10-17 06:21 | NUR ---
CLOSING NOTE: PATIENT IS RESTING IN BED. NO ACUTE S/S OF DISTRESS THROUGHOUT SHIFT. BREATHING IS EVEN AND NONLABORED ON ROOM AIR. IV SITE IS PATENT AND INTACT. [place] CATHETER IS IN PLACE AND IS DRAINING TO GRAVITY. BED IS LOCKED AT LOWEST POSITION. SIDE RAILS UP. BED ALARM ON. CALL LIGHT IS WITH PATIENT. SAFETY, FALL, AND CONTACT PRECAUTIONS MAINTAINED THROUGHOUT SHIFT. WILL CONTINUE TO MONITOR UNTIL CARE ENDORSED TO DAYSHIFT RN.
[2020-10-17 07:32] VITALS: BP_SYST 103
--- NOTE | 2020-10-17 08:00 | NUR ---
ASSUMPTION OF CARE: RECEIVED PT A/A/OX4, NO C/O PAIN, AFEBRILE, VSS, IV SITE INTACT, PATENT, NO REDNESS OR SWELLING, [place] CATH DRAINING RED COLORED, URINE TO GRAVITY, REORIENTED TO UNIT, CALL LIGHT PLACE WITHIN REACH, WILL CONT' TO MONITOR AND ASSESS.
[2020-10-17] MEDS: POLYETHYLENE GLYCOL 3350, 17 GM/ POWD.PACK PO SCH (08:32)
[2020-10-17] MEDS: KCL 20 mEq in D5/0.45NS 1000mL 1,000 ML IV SCH ×2 (08:32→21:05)
--- NOTE | 2020-10-17 09:00 | NUR ---
CHEMICAL RESEARCH ENGINEER: MORNING MEDS GIVEN, PER ORDERED BY Lamine, DILAUDID 1MG IVP GIVEN FOR PAIN, TOLERATED WELL, WILL CONT' TO MONITOR AND ASSESS.
[2020-10-17] MEDS: MEROPENEM 1 GM IVPB PREMIX 50 ML IV SCH ×2 (11:24→21:05)
[2020-10-17 12:05] VITALS: BP_SYST 143
--- NOTE | 2020-10-17 15:00 | NUR ---
NURSES NOTES: PT C/O CONSTIPATION, UNABLE TO COMPLETE BM, CALLED, OKAY TO DISIMPACT THE PT, VIA MANUALLY, REMOVED LARGE AMOUNT OF FIRM, BROWN, STOOL, PT TOLERATED WELL, REMAINS STABLE, WILL CONT' TO MONITOR AND ASSESS.
[2020-10-17 16:07] VITALS: BP_SYST 122
--- NOTE | 2020-10-17 19:30 | NUR ---
Initial RN Note: Received PT report from hubert RN. Pt is resting in bed, A&O x4. Breathing is nonlabored to RA. IV fluid running at ordered rate through BOO midline, patent and infusing. Bed locked in lowest position. Safety, fall, and isolation precautions in place. Will continue to monitor.
[2020-10-17 20:00] VITALS: BP_SYST 161
--- NOTE | 2020-10-17 21:00 | NUR ---
RN Rounds: Patient requested pain medication for pain 05/23. Administered PRN pain medication to patient. Relief noted. Will continue to monitor.
[2020-10-17] MEDS: ENOXAPARIN SODIUM 40 MG/0.4 ML SYRINGE SUBCUT SCH (21:06)
[2020-10-18 00:01] VITALS: BP_SYST 150
[2020-10-18] MEDS: HYDROmorphone 1 MG INJ. 1 MG/ML AMPUL IVP PRN ×4 (01:20→20:09)
[2020-10-18] MEDS: KCL 20 mEq in D5/0.45NS 1000mL 1,000 ML IV SCH (05:10)
--- NOTE | 2020-10-18 07:03 | NUR ---
Closing RN Note: Pt is resting in bed, A&O x4. Breathing is nonlabored to RA. IV fluid running at ordered rate through BOO midline, patent and infusing. Bed locked in lowest position. Safety, fall, and isolation precautions maintained throughout shift. All pain needs met throughout shift. Will continue to monitor until care endorsed to dayshift RN.
[2020-10-18 07:17] LABS: BASOPHILS # (AUTO) 0.1 K/uL (0.0-0.2); BASOPHILS % (AUTO) 0.7 % (0.0-2.0); EOSINOPHILS # (AUTO) 0.2 K/uL (0.0-0.4); EOSINOPHILS % (AUTO) 2.9 % (0.0-4.0); HEMATOCRIT 53.5 % (36-54); HEMOGLOBIN 18.1 g/dL (14.0-18.0); LYMPHOCYTES # (AUTO) 2.1 K/uL (1.0-5.5); MEAN CORPUSCULAR HEMOGLOBIN 30 pg (27-31); MEAN CORPUSCULAR HGB CONC 34 % (32-36); MEAN CORPUSCULAR VOLUME 90 fL (79.0-98.0); MONOCYTES # (AUTO) 0.8 K/uL (0.0-1.0); MONOCYTES % (AUTO) 11.5 % (1.7-9.3); NEUTROPHILS # (AUTO) 3.9 K/uL (1.8-7.7); NEUTROPHILS % (AUTO) 54.9 % (40.0-70.0); PLATELET COUNT (AUTO) 205 K/uL (130-430); RED BLOOD CELL COUNT(AUTO) 5.97 MIL/uL (4.2-6.2); RED CELL DISTRIBUTION WIDTH 14.1 % (9.0-15.0)
--- NOTE | 2020-10-18 07:35 | NUR ---
OPENING NOTES: RECEIVED REPORT FROM TREATMENT PLANT MECHANIC NURSE. PATIENT IS AWAKE, ALERT LAYING DOWN IN BED. PATIENT IS TOLERATING OXYGEN ON ROOM AIR WITH NO SIGNS OF DISTRESS OR SHORTNESS OF BREATH NOTED. IV LINE PATENT AND INTACT WITH NO SIGNS OF INFILTRATION NOTED. [place] CATHETER IN PLACE AND DRAINING BY GRAVITY. DENIES ANY PAIN AT THE MOMENT. PATIENT IN STABLE CONDITION.SAFETY, FALL, ASPIRATION, AND CONTACT PRECAUTION (ESBL URINE) ARE IN PLACE. BED LOCKED IN LOWEST POSITION. WILL CONTINUE TO MONITOR PATIENT FOR ANY CHANGES.
[2020-10-18 07:47] LABS: CALCIUM 9.5 mg/dL (8.4-11.0); CREATININE 1.03 mg/dL (0.55-1.30); POTASSIUM 3.8 mmol/L (3.5-5.1)
[2020-10-18] MEDS: POLYETHYLENE GLYCOL 3350, 17 GM/ POWD.PACK PO SCH (09:19)
[2020-10-18] MEDS: MEROPENEM 1 GM IVPB PREMIX 50 ML IV SCH ×2 (09:19→20:02)
--- NOTE | 2020-10-18 10:00 | NUR ---
PATIENT IS COMPLAINING OF CHILLS. CHECKED TEMP (97.6). PERFORMED BLADDER SCAN ORDERED BY DOCTOR PETTY. WITH 31 ML OF VOLUME. MD MADE AWARE
--- NOTE | 2020-10-18 10:10 | NUR ---
Discharge Planning MAMADOU spoke to Edith at [facility] (p [phone]) patient accepted, home health arranging IV medication with ([phone]). Addendum: 10/18/20 at 1718 by Anna Marie LEIJA MAMADOU faxed and spoke to Citlaly at [facility] (p [phone]) Citlaly will contact ([phone]) and set up delivery for medication. MAMADOU made charge nurse aware.
[2020-10-18 12:03] VITALS: BP_SYST 114
[2020-10-18 16:00] VITALS: BP_SYST 108
[2020-10-18] MEDS ORDERED: HYDR-4272 PO (18:28)
[2020-10-18 18:53] VITALS: BP_SYST 108
[2020-10-18 19:26] VITALS: BP_SYST 108
--- NOTE | 2020-10-18 19:35 | NUR ---
CLOSING NOTES: PATIENT IS AWAKE, ALERT LAYING DOWN IN BED. PATIENT IS TOLERATING OXYGEN ON ROOM AIR WITH NO SIGNS OF DISTRESS OR SHORTNESS OF BREATH NOTED. IV LINE PATENT AND INTACT WITH NO SIGNS OF INFILTRATION NOTED. [place] CATHETER IN PLACE AND DRAINING BY GRAVITY. DENIES ANY PAIN AT THE MOMENT. PATIENT IN STABLE CONDITION.SAFETY, FALL, ASPIRATION, AND CONTACT PRECAUTION (ESBL URINE) REMAINED IN PLACE. BED LOCKED IN LOWEST POSITION. WILL ENDORSE PATIENT CARE TO ONCOMING NURSE ON DUTY.
[2020-10-18 20:00] VITALS: BP_SYST 135
[2020-10-18] MEDS: ENOXAPARIN SODIUM 40 MG/0.4 ML SYRINGE SUBCUT SCH (20:02)
--- NOTE | 2020-10-18 20:05 | NUR ---
HUNG MERREM ORDERED RATE. NO S/S OF ADVERSE REACTION NOTED. PT TOLERATED WELL.
--- NOTE | 2020-10-18 22:00 | NUR ---
D/C Patient Patient given medication reconciliation form and D/C instructions. Exit Care provided. Patient verbalized understanding. Patient in stable condition, ID band removed. Left upper arm midline clean, dry, and intact. Patient educated on pain management. All belongings sent with patient.
--- NOTE | 2020-10-18 22:00 | NUR ---
D/C Patient Patient given medication reconciliation form and D/C instructions. Exit Care provided. Patient verbalized understanding. Patient in stable condition, ID band removed. IV catheter removed, intact and dressing applied, no active bleeding. Patient educated on pain management. All belongings sent with patient. Addendum: 10/18/20 at 2255 by Chichi Rojas RN DISCARD.
== END 2020-10-18 22:00 | disposition home health service (06) | DRG 659 ==
LOC: SED 20:37 → SMU 23:59
PROVIDERS: ADMIT Family Medicine; ATTEND Family Medicine
PROC: BT1F1ZZ Fluoroscopy of Left Kidney, Ureter and Bladder using Low Osmolar Contrast (ICD-10-PCS; 2020-10-16)
PROC: 0T778DZ Dilation of Left Ureter with Intraluminal Device, Via Natural or Artificial Opening Endoscopic (ICD-10-PCS; principal; 2020-10-16 07:30)
DX: N13.6 Pyonephrosis (principal); R53.2 Functional quadriplegia; Z90.49 Acquired absence of other specified parts of digestive tract
CPT/HCPCS: 36415; 76000; 76376; 78707; 80048; 80053; 81000-TC; 83605; 83735-TC; 84100-TC; 85007; 85025; 85027; 85610-TC; 85730-TC; 86886; 86900; 86901; 87040-TC; 87081; 87086; 94010; 96361; 96365; 96366; 96367; 96375; A9562; C1751; C1769; C2625; J0696; J1170; J1650; J1885; J2185; J2270; J2405; Q9967

== ENCOUNTER 2020-11-06 21:32 | Inpatient (IN) | payer OTHER, SELFPAY ==
[~2020-11-06] VITALS: Ht 180.3 cm; Wt 99.8 kg
[~2020-11-06 21:32] MED LIST changes: +HYDR-4272 PO; -ROCPM1 IM
[2020-11-06 21:40] VITALS: BP_SYST 190
[2020-11-06] MEDS ORDERED: NACL 0.9% 1,000 ML IV ONE (21:45)
[2020-11-06] MEDS ORDERED: KETOROLAC TROMETHAMINE 30 MG VIAL IVP ONE (21:45)
[2020-11-06] MEDS ORDERED: ONDANSETRON HCL 4 MG/2 ML VIAL IVP ONE (21:45)
[2020-11-06] MEDS ORDERED: MORPHINE 4 MG/ML INJ. SYRINGE IVP ONE (21:45)
[2020-11-06 22:04] LABS: BILIRUBIN,URINE NEGATIVE (NEGATIVE); BLOOD, URINE 3+ (NEGATIVE); CLARITY/URINE SL CLOUDY (CLEAR); COLOR,URINE YELLOW (YELLOW); GLUCOSE,URINE NEGATIVE (NEGATIVE); KETONES,URINE NEGATIVE (NEGATIVE); LEUKOCYTE ESTERASE ,URINE 3+ (NEGATIVE); NITRITE, URINE POSITIVE (NEGATIVE); PROTEIN URINE 2+ (NEGATIVE); UROBILINOGEN,URINE 0.2 (0.2-1.0)
[2020-11-06 22:15] LABS: BACTERIA,URINE MANY /HPF (None Seen); WBC,URINE 80-100 /HPF (0-3)
[2020-11-06 22:16] LABS: MUCUS,URINE 1+ /LPF (None Seen)
[2020-11-06 22:27] LABS: BASOPHILS # (AUTO) 0.1 K/uL (0.0-0.2); BASOPHILS % (AUTO) 1.1 % (0.0-2.0); EOSINOPHILS % (AUTO) 0.1 % (0.0-4.0); HEMATOCRIT 40.1 % (36-54); HEMOGLOBIN 13.7 g/dL (14.0-18.0); LYMPHOCYTES # (AUTO) 1.1 K/uL (1.0-5.5); LYMPHOCYTES % (AUTO) 11.4 % (20.5-51.5); MEAN CORPUSCULAR HEMOGLOBIN 30 pg (27-31); MEAN CORPUSCULAR HGB CONC 34 % (32-36); MEAN CORPUSCULAR VOLUME 88 fL (79.0-98.0); MONOCYTES # (AUTO) 1.1 K/uL (0.0-1.0); MONOCYTES % (AUTO) 11.5 % (1.7-9.3); NEUTROPHILS # (AUTO) 7.1 K/uL (1.8-7.7); NEUTROPHILS % (AUTO) 75.9 % (40.0-70.0); PLATELET COUNT (AUTO) 185 K/uL (130-430); RED BLOOD CELL COUNT(AUTO) 4.57 MIL/uL (4.2-6.2); RED CELL DISTRIBUTION WIDTH 13.8 % (9.0-15.0); WHITE BLOOD COUNT (AUTO) 9.3 K/uL (4.8-10.8)
[2020-11-06 22:37] LABS: POTASSIUM 3.2 mmol/L (3.5-5.1)
[2020-11-06 22:38] LABS: CALCIUM 8.4 mg/dL (8.4-11.0); CREATININE 1.18 mg/dL (0.55-1.30)
[2020-11-06 22:41] LABS: TOTAL BILIRUBIN 2.1 mg/dL (0.0-1.0)
[2020-11-06 22:42] LABS: ALBUMIN 3.3 g/dL (3.4-4.8)
[2020-11-06] MEDS ORDERED: cefTRIAXone 1 GM in D5W 50 ML IV ONE (23:00)
[2020-11-06] MEDS ORDERED: cefOXitin 1 GM IVPB PREMIX 50 ML IV ONE (23:18)
[2020-11-07] MEDS ORDERED: ACETAMINOPHEN 325 MG TABLET PO PRN
[2020-11-07] MEDS ORDERED: NALOXONE HCL 0.4 MG/ML AMP (NARCAN) IVP PRN
[2020-11-07] MEDS ORDERED: ONDANSETRON HCL 4 MG/2 ML VIAL IVP PRN
[2020-11-07 01:30] VITALS: BP_SYST 113
[2020-11-07 01:41] VITALS: BP_SYST 113
[2020-11-07] MEDS: HYDROmorphone 1 MG INJ. 1 MG/ML AMPUL IVP PRN ×6 (01:45→22:16)
[2020-11-07] MEDS ORDERED: MEROPENEM 1 GM VIAL IV ONE (01:48)
[2020-11-07] MEDS ORDERED: KCL 20 mEq in D5/0.45NS 1000mL 1,000 ML IV ONE (01:48)
[2020-11-07 04:00] VITALS: BP_SYST 135
[2020-11-07] MEDS: KCL 20 mEq in D5/0.45NS 1000mL 1,000 ML IV SCH ×2 (05:34→12:50)
[2020-11-07] MEDS: MEROPENEM 1 GM IVPB PREMIX 50 ML IV SCH ×3 (05:35→22:02)
[2020-11-07 06:42] LABS: BASOPHILS % (AUTO) 0.5 % (0.0-2.0); HEMATOCRIT 32.1 % (36-54); LYMPHOCYTES # (AUTO) 1.2 K/uL (1.0-5.5); LYMPHOCYTES % (AUTO) 23.7 % (20.5-51.5); MEAN CORPUSCULAR HEMOGLOBIN 30 pg (27-31); MEAN CORPUSCULAR HGB CONC 34 % (32-36); MEAN CORPUSCULAR VOLUME 88 fL (79.0-98.0); MONOCYTES # (AUTO) 0.8 K/uL (0.0-1.0); MONOCYTES % (AUTO) 16.5 % (1.7-9.3); NEUTROPHILS # (AUTO) 2.9 K/uL (1.8-7.7); NEUTROPHILS % (AUTO) 58.3 % (40.0-70.0); PLATELET COUNT (AUTO) 138 K/uL (130-430); RED BLOOD CELL COUNT(AUTO) 3.63 MIL/uL (4.2-6.2); RED CELL DISTRIBUTION WIDTH 13.9 % (9.0-15.0)
[2020-11-07 06:48] LABS: CALCIUM 7.7 mg/dL (8.4-11.0); CREATININE 1.06 mg/dL (0.55-1.30); POTASSIUM 3.3 mmol/L (3.5-5.1)
[2020-11-07] MEDS: ENOXAPARIN SODIUM 40 MG/0.4 ML SYRINGE SUBCUT SCH (08:42)
[2020-11-07 11:39] VITALS: BP_SYST 109
[2020-11-07] MEDS ORDERED: POTASSIUM CHLORIDE 20 MEQ TAB.PRT.SR PO ONE (14:45)
[2020-11-07 15:34] VITALS: BP_SYST 113
[2020-11-07 20:52] VITALS: BP_SYST 112
[2020-11-07] MEDS ORDERED: VANCOMYCIN HCL 1 GM/NS PREMIX 250 ML IV ONE (21:45)
[2020-11-07] MEDS ORDERED: VANCOMYCIN HCL 1000 MG/VIAL IV ONE (22:17)
[2020-11-08] VITALS (7 sets, daily range): BP systolic 112–148
[2020-11-08] MEDS: KCL 20 mEq in D5/0.45NS 1000mL 1,000 ML IV SCH ×2 (01:59→15:30)
[2020-11-08] MEDS ORDERED: VANCOMYCIN HCL 1 GM/NS PREMIX 250 ML IV ONE (06:00)
[2020-11-08] MEDS: HYDROmorphone 1 MG INJ. 1 MG/ML AMPUL IVP PRN ×5 (06:23→22:55)
[2020-11-08] MEDS: MEROPENEM 1 GM IVPB PREMIX 50 ML IV SCH ×3 (06:27→22:50)
[2020-11-08] MEDS: VANCOMYCIN HCL 1,500 MG in NS 250 ML IV SCH ×2 (08:42→20:45)
[2020-11-08] MEDS: ENOXAPARIN SODIUM 40 MG/0.4 ML SYRINGE SUBCUT SCH (09:34)
[2020-11-09] VITALS: BP_SYST 112
[2020-11-09] MEDS: HYDROmorphone 1 MG INJ. 1 MG/ML AMPUL IVP PRN ×5 (03:06→19:56)
[2020-11-09] MEDS: KCL 20 mEq in D5/0.45NS 1000mL 1,000 ML IV SCH ×2 (03:07→17:41)
[2020-11-09] MEDS: MEROPENEM 1 GM IVPB PREMIX 50 ML IV SCH ×3 (05:03→22:21)
[2020-11-09 09:08] VITALS: BP_SYST 128
[2020-11-09] MEDS: VANCOMYCIN HCL 1,500 MG in NS 250 ML IV SCH ×2 (09:08→19:46)
[2020-11-09] MEDS: ENOXAPARIN SODIUM 40 MG/0.4 ML SYRINGE SUBCUT SCH (10:05)
[2020-11-09 12:03] VITALS: BP_SYST 115
[2020-11-09 16:00] VITALS: BP_SYST 120
[2020-11-09 19:00] VITALS: BP_SYST 161
[2020-11-09 20:23] VITALS: BP_SYST 161
[2020-11-10] VITALS: BP_SYST 124
[2020-11-10] MEDS: HYDROmorphone 1 MG INJ. 1 MG/ML AMPUL IVP PRN ×6 (00:08→22:22)
[2020-11-10] MEDS ORDERED: KCL 20 mEq in D5/0.45NS 1000mL 1,000 ML IV ONE ×2 (00:23→21:34)
[2020-11-10] MEDS: MEROPENEM 1 GM IVPB PREMIX 50 ML IV SCH ×3 (05:54→21:13)
[2020-11-10 06:48] LABS: BASOPHILS % (AUTO) 0.6 % (0.0-2.0); EOSINOPHILS # (AUTO) 0.5 K/uL (0.0-0.4); EOSINOPHILS % (AUTO) 12.1 % (0.0-4.0); HEMATOCRIT 37.8 % (36-54); HEMOGLOBIN 12.5 g/dL (14.0-18.0); LYMPHOCYTES # (AUTO) 0.9 K/uL (1.0-5.5); MEAN CORPUSCULAR HEMOGLOBIN 29 pg (27-31); MEAN CORPUSCULAR HGB CONC 33 % (32-36); MEAN CORPUSCULAR VOLUME 88 fL (79.0-98.0); MONOCYTES # (AUTO) 0.5 K/uL (0.0-1.0); MONOCYTES % (AUTO) 12.3 % (1.7-9.3); NEUTROPHILS # (AUTO) 2.1 K/uL (1.8-7.7); PLATELET COUNT (AUTO) 189 K/uL (130-430); RED BLOOD CELL COUNT(AUTO) 4.29 MIL/uL (4.2-6.2); RED CELL DISTRIBUTION WIDTH 13.5 % (9.0-15.0)
[2020-11-10 07:22] LABS: ALBUMIN 2.5 g/dL (3.4-4.8); CALCIUM 8.4 mg/dL (8.4-11.0); CREATININE 0.98 mg/dL (0.55-1.30); POTASSIUM 3.9 mmol/L (3.5-5.1); TOTAL BILIRUBIN 0.6 mg/dL (0.0-1.0)
[2020-11-10] MEDS: ENOXAPARIN SODIUM 40 MG/0.4 ML SYRINGE SUBCUT SCH (08:51)
[2020-11-10 08:53] VITALS: BP_SYST 125
[2020-11-10] MEDS: KCL 20 mEq in D5/0.45NS 1000mL 1,000 ML IV SCH ×2 (08:53→22:21)
[2020-11-10 12:00] VITALS: BP_SYST 128
[2020-11-10 16:04] VITALS: BP_SYST 102
[2020-11-10] MEDS: VANCOMYCIN HCL 1.25 GM/NS 250 ML IV SCH (18:11)
[2020-11-10 20:00] VITALS: BP_SYST 144
[2020-11-11] VITALS: BP_SYST 133
[2020-11-11] MEDS: HYDROmorphone 1 MG INJ. 1 MG/ML AMPUL IVP PRN ×5 (04:05→22:23)
[2020-11-11] MEDS: VANCOMYCIN HCL 1.25 GM/NS 250 ML IV SCH ×2 (04:07→16:17)
[2020-11-11] MEDS: MEROPENEM 1 GM IVPB PREMIX 50 ML IV SCH ×3 (05:44→22:28)
[2020-11-11 06:20] LABS: BASOPHILS % (AUTO) 0.5 % (0.0-2.0); EOSINOPHILS # (AUTO) 0.5 K/uL (0.0-0.4); EOSINOPHILS % (AUTO) 9.4 % (0.0-4.0); HEMATOCRIT 39.3 % (36-54); LYMPHOCYTES # (AUTO) 1.2 K/uL (1.0-5.5); LYMPHOCYTES % (AUTO) 22.2 % (20.5-51.5); MEAN CORPUSCULAR HEMOGLOBIN 29 pg (27-31); MEAN CORPUSCULAR HGB CONC 33 % (32-36); MEAN CORPUSCULAR VOLUME 88 fL (79.0-98.0); MONOCYTES # (AUTO) 0.6 K/uL (0.0-1.0); MONOCYTES % (AUTO) 11.3 % (1.7-9.3); NEUTROPHILS # (AUTO) 3.1 K/uL (1.8-7.7); NEUTROPHILS % (AUTO) 56.6 % (40.0-70.0); PLATELET COUNT (AUTO) 198 K/uL (130-430); RED BLOOD CELL COUNT(AUTO) 4.49 MIL/uL (4.2-6.2); RED CELL DISTRIBUTION WIDTH 13.5 % (9.0-15.0); WHITE BLOOD COUNT (AUTO) 5.4 K/uL (4.8-10.8)
[2020-11-11 06:53] LABS: ALBUMIN 2.6 g/dL (3.4-4.8); CALCIUM 8.3 mg/dL (8.4-11.0); CREATININE 0.92 mg/dL (0.55-1.30); POTASSIUM 3.8 mmol/L (3.5-5.1); TOTAL BILIRUBIN 0.7 mg/dL (0.0-1.0)
[2020-11-11 08:48] VITALS: BP_SYST 137
[2020-11-11] MEDS: ENOXAPARIN SODIUM 40 MG/0.4 ML SYRINGE SUBCUT SCH (08:52)
[2020-11-11 12:10] VITALS: BP_SYST 135
[2020-11-11] MEDS: KCL 20 mEq in D5/0.45NS 1000mL 1,000 ML IV SCH ×2 (13:35→20:00)
[2020-11-11 16:14] VITALS: BP_SYST 130
[2020-11-11 20:00] VITALS: BP_SYST 138
[2020-11-12 00:30] VITALS: BP_SYST 149
[2020-11-12] MEDS: HYDROmorphone 1 MG INJ. 1 MG/ML AMPUL IVP PRN ×4 (02:31→17:34)
[2020-11-12] MEDS: VANCOMYCIN HCL 1.25 GM/NS 250 ML IV SCH ×2 (04:44→16:31)
[2020-11-12 08:00] VITALS: BP_SYST 130
[2020-11-12] MEDS: ENOXAPARIN SODIUM 40 MG/0.4 ML SYRINGE SUBCUT SCH (08:32)
[2020-11-12] MEDS: MEROPENEM 1 GM IVPB PREMIX 50 ML IV SCH ×3 (08:33→20:39)
[2020-11-12] MEDS ORDERED: SODIUM PHOSPHATE,MONO-DIBASIC 133 ML ENEMA RC ONE (08:45)
[2020-11-12 12:00] VITALS: BP_SYST 139
[2020-11-12] MEDS ORDERED: BISACODYL 10 MG/SUPPOSITORY RC ONE (12:30)
[2020-11-12] MEDS: KCL 20 mEq in D5/0.45NS 1000mL 1,000 ML IV SCH (13:01)
[2020-11-12 15:35] VITALS: BP_SYST 132
[2020-11-12] MEDS ORDERED: LEVO750T45 PO (18:36)
[2020-11-12 20:00] VITALS: BP_SYST 143
[2020-11-12 21:11] VITALS: BP_SYST 143
== END 2020-11-12 21:40 | disposition home or self-care (01) | DRG 689 ==
LOC: SED 21:32 → SMU 23:29
PROVIDERS: ADMIT Family Medicine; ATTEND Family Medicine
DX: N10 Acute pyelonephritis (principal); R53.2 Functional quadriplegia; R78.81 Bacteremia; Z20.822 Contact with and (suspected) exposure to COVID-19; N20.0 Calculus of kidney
CPT/HCPCS: 36415; 76376; 80048; 80053; 80202-TC; 81000-TC; 83690-TC; 85025; 87040-TC; 87081; 87086; 96361; 96365; 96375; J0694; J1170; J1650; J1885; J2185; J2270; J2405; J3370; J7050

== ENCOUNTER 2021-01-13 16:19 | Emergency (ER) | payer OTHER ==
[~2021-01-13] VITALS: Ht 180.3 cm; Wt 108.9 kg
[~2021-01-13 16:19] MED LIST changes: -HYDR-4272 PO; +LEVO750T45 PO
[2021-01-13 16:25] VITALS: BP_SYST 115
--- NOTE | 2021-01-13 16:25 | NUR ---
Patient to ER bed 07 to gown for evaluation. Side rails up.
--- NOTE | 2021-01-13 16:29 | NUR ---
PT CAME IN FROM HOME C/O RIGHT LEG WEEPING FLUID AFTER HITTING IT AT HOME WHILE IN CHAIR. PT REPORTS HX OF C6-C7 SPINAL INJURY WHICH RESULTED IN HIM BEING WHEELCHAIR BOUND. PT CAME IN WITH SMALL BANDAGE, NO OBVIOUS INJURY TO RIGHT LOWER LEG WITH SMALL DROPS OF WEEPING EDEMA. EDEMA++ TO BOTH LOWER EXTREMETIES. PT USES CONDOM CATH. AAOX4, V/S STABLE
--- NOTE | 2021-01-13 16:47 | NUR ---
ER DR. MEJIA AT THE BEDSIDE EXAMINING PT
[2021-01-13] MEDS ORDERED: DIPH-TET-PERTUS Vaccine 0.5 ML VIAL (ADACEL) I.M. ONE (17:00)
[2021-01-13] MEDS ORDERED: BACITRACIN 1 GM OINT TP ONE (17:00)
--- NOTE | 2021-01-13 17:19 | NUR ---
Patient given written and verbal discharge instructions and verbalizes understanding. ER MD discussed with patient the results and treatment provided. Patient in stable condition. ID arm band removed. Patient educated on pain management and to follow up with PMD. Pain Scale 0/10. Opportunity for questions provided and answered. Medication side effect fact sheet provided.
== END 2021-01-13 17:14 | disposition home or self-care (01) ==
LOC: SED 16:19
DX: S80.811A Abrasion, right lower leg, initial encounter (principal); Z79.899 Other long term (current) drug therapy; W22.8XXA Striking against or struck by other objects, initial encounter; Y93.89 Activity, other specified; Y92.89 Other specified places as the place of occurrence of the external cause; Y99.8 Other external cause status
CPT/HCPCS: 90715; 99283

== ENCOUNTER 2023-05-08 21:37 | Emergency (ER) | payer OTHER ==
[~2023-05-08] VITALS: Ht 177.8 cm; Wt 108.9 kg
[~2023-05-08 21:37] MED LIST changes: -LEVO750T45 PO; +LEVO750T64 PO
[2023-05-08 21:48] VITALS: BP_SYST 121; PULSE 73; RESP 16; TEMP 97.6; O2SAT 95
[2023-05-09] MEDS ORDERED: HYDROcodone/ACETAMIN 5-325 MG TAB (NORCO/ VICODIN) PO ONE (01:30)
[2023-05-09 01:57] LABS: BASOPHILS # (AUTO) 0.1 K/uL (0.0-0.2); BASOPHILS % (AUTO) 0.7 % (0.0-2.0); EOSINOPHILS # (AUTO) 0.2 K/uL (0.0-0.4); EOSINOPHILS % (AUTO) 2.8 % (0.0-4.0); HEMATOCRIT 46.7 % (36-54); HEMOGLOBIN 16.1 g/dL (14.0-18.0); LYMPHOCYTES # (AUTO) 1.9 K/uL (1.0-5.5); LYMPHOCYTES % (AUTO) 23.6 % (20.5-51.5); MEAN CORPUSCULAR HEMOGLOBIN 31 pg (27-31); MEAN CORPUSCULAR HGB CONC 34 % (32-36); MEAN CORPUSCULAR VOLUME 91 fL (79.0-98.0); MONOCYTES # (AUTO) 0.6 K/uL (0.0-1.0); MONOCYTES % (AUTO) 7.4 % (1.7-9.3); NEUTROPHILS # (AUTO) 5.2 K/uL (1.8-7.7); NEUTROPHILS % (AUTO) 65.5 % (40.0-70.0); PLATELET COUNT (AUTO) 219 K/uL (130-430); RED BLOOD CELL COUNT(AUTO) 5.14 MIL/uL (4.2-6.2); RED CELL DISTRIBUTION WIDTH 13.6 % (9.0-15.0)
[2023-05-09 02:01] LABS: CALCIUM 8.8 mg/dL (8.4-11.0); CREATININE 1.26 mg/dL (0.55-1.30)
[2023-05-09 02:28] LABS: BILIRUBIN,URINE NEGATIVE (NEGATIVE); BLOOD, URINE NEGATIVE (NEGATIVE); CLARITY/URINE SLIGHTLY CLOUDY (CLEAR); COLOR,URINE YELLOW (YELLOW); GLUCOSE,URINE NEGATIVE (NEGATIVE); KETONES,URINE NEGATIVE (NEGATIVE); PROTEIN URINE NEGATIVE (NEGATIVE)
[2023-05-09 02:29] LABS: LEUKOCYTE ESTERASE ,URINE 1+ (NEGATIVE); NITRITE, URINE POSITIVE (NEGATIVE); UROBILINOGEN,URINE 0.2 (0.2-1.0)
[2023-05-09 02:30] LABS: BACTERIA,URINE MANY /HPF (None Seen); RBC,URINE 0-3 /HPF (0-3)
[2023-05-09] MEDS ORDERED: LEVO750T64 PO (04:39)
[2023-05-09] MEDS ORDERED: AUG875 PO (04:39)
[2023-05-09 05:48] VITALS: BP_SYST 119; PULSE 71; RESP 16; TEMP 97.6; O2SAT 96
== END 2023-05-09 05:47 | disposition home or self-care (01) ==
LOC: SED 21:37
DX: N39.0 Urinary tract infection, site not specified (principal); R39.198 Other difficulties with micturition; R10.30 Lower abdominal pain, unspecified; R50.9 Fever, unspecified; Z79.899 Other long term (current) drug therapy
CPT/HCPCS: 36415; 80048; 81000; 85025; 87086; 99283

== ENCOUNTER 2023-07-10 21:46 | Emergency (ER) | payer OTHER ==
[~2023-07-10 21:46] MED LIST changes: +AUG875 PO
[2023-07-10 21:50] VITALS: BP_SYST 97; PULSE 70; RESP 18; TEMP 98.4; O2SAT 97
[2023-07-10 23:25] LABS: BILIRUBIN,URINE NEGATIVE (NEGATIVE); BLOOD, URINE NEGATIVE (NEGATIVE); CLARITY/URINE CLEAR (CLEAR); COLOR,URINE YELLOW (YELLOW); GLUCOSE,URINE NEGATIVE (NEGATIVE); KETONES,URINE NEGATIVE (NEGATIVE); LEUKOCYTE ESTERASE ,URINE 2+ (NEGATIVE); NITRITE, URINE POSITIVE (NEGATIVE); PROTEIN URINE NEGATIVE (NEGATIVE); UROBILINOGEN,URINE 0.2 (0.2-1.0)
[2023-07-10 23:26] LABS: BASOPHILS # (AUTO) 0.1 K/uL (0.0-0.2); BASOPHILS % (AUTO) 0.6 % (0.0-2.0); EOSINOPHILS # (AUTO) 0.1 K/uL (0.0-0.4); EOSINOPHILS % (AUTO) 1.1 % (0.0-4.0); HEMATOCRIT 47.1 % (36-54); HEMOGLOBIN 15.7 g/dL (14.0-18.0); LYMPHOCYTES # (AUTO) 1.4 K/uL (1.0-5.5); LYMPHOCYTES % (AUTO) 16.9 % (20.5-51.5); MEAN CORPUSCULAR HEMOGLOBIN 31 pg (27-31); MEAN CORPUSCULAR HGB CONC 33 % (32-36); MEAN CORPUSCULAR VOLUME 92 fL (79.0-98.0); MONOCYTES # (AUTO) 0.4 K/uL (0.0-1.0); MONOCYTES % (AUTO) 5.2 % (1.7-9.3); NEUTROPHILS # (AUTO) 6.3 K/uL (1.8-7.7); NEUTROPHILS % (AUTO) 76.2 % (40.0-70.0); PLATELET COUNT (AUTO) 196 K/uL (130-430); RED BLOOD CELL COUNT(AUTO) 5.12 MIL/uL (4.2-6.2); RED CELL DISTRIBUTION WIDTH 13.5 % (9.0-15.0); WHITE BLOOD COUNT (AUTO) 8.3 K/uL (4.8-10.8)
[2023-07-10 23:41] LABS: CALCIUM 8.9 mg/dL (8.4-11.0); CREATININE 1.22 mg/dL (0.55-1.30)
[2023-07-10 23:46] LABS: ALBUMIN 3.5 g/dL (3.4-4.8); TOTAL BILIRUBIN 0.7 mg/dL (0.0-1.0); TOTAL PROTEIN, SERUM 7.2 g/dL (6.4-8.3)
[2023-07-10 23:53] LABS: BACTERIA,URINE FEW /HPF (None Seen)
[2023-07-11] MEDS ORDERED: ACET-2634 PO (00:09)
[2023-07-11] MEDS ORDERED: SULF1TAB48 PO (00:09)
[2023-07-11] MEDS ORDERED: IBUP-1970 PO (00:09)
[2023-07-11] MEDS ORDERED: ACETAMINOPHEN 500 MG TABLET PO ONE (00:15)
[2023-07-11] MEDS ORDERED: SULFAMETHOXAZOLE/TRIMETHOPR DS 1 TABLET PO ONE (00:15)
[2023-07-11 00:28] VITALS: BP_SYST 151; PULSE 58; RESP 20; TEMP 97.7; O2SAT 97
== END 2023-07-11 00:28 | disposition home or self-care (01) ==
LOC: SED 21:46
DX: N39.0 Urinary tract infection, site not specified (principal); R10.84 Generalized abdominal pain; R39.11 Hesitancy of micturition; Z79.899 Other long term (current) drug therapy
CPT/HCPCS: 36415; 80053; 81000; 81001; 81015; 83690; 85025; 87086; 99283